=== PATIENT | female | born 1960 | race Caucasian/White ===

== ENCOUNTER 2016-06-01 17:15 | Emergency (ER) | payer MEDICAID ==
--- NOTE | 2016-06-01 17:48 | ER Document Report ---
ED Respiratory Problem - General Mode of Arrival: Medic Information source: Patient TRAVEL OUTSIDE OF THE [place] IN LAST 30 DAYS: No - HPI Patient complains to provider of: Short of breath Associated symptoms: Other - See above <DENNY CHEW - Last Filed: 06/01/16 18:33> <JOSAFAT MCKEON - Last Filed: 06/01/16 20:37> - General Chief Complaint: Shortness Of Breath Stated Complaint: SHORTNESS OF BREATH Notes: Patient is a 55-year-old female, with a past medical history including COPD, who presents to the emergency department today via EMS complaining of shortness of breath. Patient reports she has had a cough for the past week and was treated by her hammer operator with steroids and antibiotics which she completed yesterday. Patient states that yesterday she began having shortness of breath and was up all night. Patient denies any fever. Patient states that she has not been smoking for the past 5 days. Patient is not on home oxygen. Circuit Clerk: Dr. 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 Family History: Reviewed & Not Pertinent - Past Medical History Cardiac Medical History: Reports: Hx Heart Attack - 2003 because of drug interactions Pulmonary Medical History: Reports: Hx Asthma, Hx COPD Neurological Medical History: Reports: Hx Seizures - RX DRUG RELATED FROM CLONIPINE/1 EPISODE 4-5 YRS AGO GI Medical History: Reports: Hx Diverticulitis Psychiatric Medical History: Reports: Hx Bipolar Disorder, Hx Depression Past Surgical History: Reports: Hx Abdominal Surgery - colostomy, romero, Hx Orthopedic Surgery - Partial R hip replacement - Immunizations Hx Diphtheria, Pertussis, Tetanus Vaccination: Yes Hx Pneumococcal Vaccination: 05/29/11 <DENNY CHEW - Last Filed: 06/01/16 18:33> Review of Systems - Review of Systems Constitutional: denies: Fever EENT: No symptoms reported Cardiovascular: No symptoms reported Respiratory: See HPI, Cough, Short of breath Gastrointestinal: No symptoms reported Genitourinary: No symptoms reported Female Genitourinary: No symptoms reported Musculoskeletal: No symptoms reported Skin: No symptoms reported Hematologic/Lymphatic: No symptoms reported Neurological/Psychological: No symptoms reported -: Yes All other systems reviewed and negative <CHEWDENNY - Last Filed: 06/01/16 18:33> Physical Exam - Vital signs Interpretation: Normal - General General appearance: Appears well, Alert - HEENT Head: Normocephalic, Atraumatic - Respiratory Respiratory status: No respiratory distress Chest status: Nontender Breath sounds: Wheezing - expiratory wheeze Chest palpation: Normal - Cardiovascular Rhythm: Regular Heart sounds: Normal auscultation Murmur: No - Abdominal Inspection: Normal Distension: No distension Bowel sounds: Normal Tenderness: Nontender Organomegaly: No organomegaly - Extremities General upper extremity: Normal inspection General lower extremity: Normal inspection - Neurological Neuro grossly intact: Yes Cognition: Normal Orientation: AAOx4 [place] Coma Scale Eye Opening: Spontaneous [place] Coma Scale Verbal: Oriented [place] Coma Scale Motor: Obeys Commands [place] Coma Scale Total: 15 Speech: Normal - Psychological Associated symptoms: Normal affect, Normal mood - Skin Skin Temperature: Warm Skin Moisture: Dry Skin Color: Normal <DENNY CHEW - Last Filed: 06/01/16 18:33> Course - Laboratory Result Diagrams: 06/01/16 18:23 06/01/16 18:23 <DENNY CHEW - Last Filed: 06/01/16 18:33> - Laboratory Result Diagrams: 06/01/16 18:23 06/01/16 18:23 <JOSAFAT MCKEON - Last Filed: 06/01/16 20:37> - Re-evaluation Re-evalutation: 06/01/16 20:35 I personally performed the services described in the documentation, reviewed and edited the documentation which was dictated to my scribe in my presence, and it accurately records my words and actions. Patient with a history of COPD not on oxygen presents with a 4-5 day history of increased cough and wheezing. She saw her primary home care rn was placed on Zithromax and prednisone as that she still has wheezing at night she also has a nebulizer machine at home. She denies any shortness breath with atypical for her history of COPD and asthma. She denies any cardiac complaints exertional phenomena and is wheelchair-bound. She denies any recent history of travel surgery immobilization DVT or pulmonary MT nondirectional edema Or Swelling or CHF Chest X-Ray Is Negative Significant Improvement with Breathing Treatments Is on Steroids and Given Magnesium. Pulse Ox 93-94% at Bedside We'll Discharge Follow-Up with Primary Care Physician in 2-3 Days Term for Increasing Worsening or New Symptoms (JOSAFAT MCKEON) - Vital Signs Vital signs: Temp Pulse Resp BP Pulse Ox 97.7 F 102 H 20 124/94 H 91 L 06/01/16 19:10 06/01/16 18:00 06/01/16 18:00 06/01/16 18:00 06/01/16 18:00 (JOSAFAT MCKEON) - Laboratory Laboratory results interpreted by me: 06/01/16 06/01/16 18:23 18:23 Seg Neutrophils % 90.2 H Lymphocytes % 6.3 L Monocytes % 2.6 L BUN 4 L Glucose 119 H (JOSAFAT MCKEON) Discharge <DENNY CHEW - Last Filed: 06/01/16 18:33> <JOSAFAT MCKEON - Last Filed: 06/01/16 20:37> - Discharge Clinical Impression: Acute bronchitis Qualifiers: Bronchitis organism: unspecified organism Qualified Code(s): J20.9 - Acute bronchitis, unspecified Condition: Stable Disposition: HOME, SELF-CARE Additional Instructions: Bronchitis You have acute bronchitis. This disease is an infection or inflammation of the air passageways in your lungs. Symptoms usually include cough, low grade fever, shortness of breath, and wheezing. The cough usually persists for a couple of weeks. Most cases of bronchitis get better without antibiotics. We prescribe antibiotics when we believe bacteria are damaging your airways, or if there's high risk the bronchitis will worsen into pneumonia. Increase your fluid intake. A cool mist humidifier may make your lungs more comfortable. An expectorant (cough medicine that loosens phlegm) can help. If you smoke, STOP!!! Recovery from bronchitis can be somewhat slow, but you should see improvement within a day or two. Repeated episodes of bronchitis may result in lung damage -- for example, chronic bronchitis, recurrent pneumonias, or emphysema. Call the doctor if you develop increasing fever, shortness of breath, chest pain, bloody sputum, or otherwise worsen. If you have not improved at all after several days, contact the physician. Referrals: BAY ROMO MD [Primary Care Provider] - (Follow-up in 2-3 days return for increasing worsening or new symptoms) Scribe Documentation - Scribe Written by Mario:: mario Douglas, 06/01/[id number] acting as scribe for :: Henry <DENNY CHEW - Last Filed: 06/01/16 18:33>
[2016-06-01] MEDS ORDERED: METHYLPREDNISOLONE INJ 125 MG/2 ML SDV IV ONE (18:09)
[2016-06-01] MEDS ORDERED: MAGNESIUM SULFATE/D5W 100 ML IV SCH (18:15)
[2016-06-01 18:31] LABS: ABSOLUTE LYMPHOCYTES (AUTO) 0.6 10^3/uL (0.5-4.7); ABSOLUTE MONOCYTES (AUTO) 0.2 10^3/uL (0.1-1.4); ABSOLUTE NEUT (AUTO) 8.1 10^3/uL (1.7-8.2); BASOPHILS % (AUTO) 0.4 % (0-2); EOSINOPHILS % (AUTO) 0.5 % (0-6); HEMATOCRIT 41.3 % (36.0-47.0); HEMOGLOBIN 13.6 g/dL (12.0-15.5); HGB HCT DIFFERENCE -0.5; LYMPHOCYTES % (AUTO) 6.3 % (13-45); MEAN CORPUSCULAR HEMOGLOBIN 27.5 pg (27.0-33.4); MEAN CORPUSCULAR HGB CONC 32.9 g/dL (32.0-36.0); MEAN CORPUSCULAR VOLUME 84 fl (80-97); MONOCYTES % (AUTO) 2.6 % (3-13); RED BLOOD COUNT 4.93 10^6/uL (3.72-5.28); RED CELL DISTRIBUTION WIDTH 13.6 % (11.5-14.0); SEGMENTED NEUTROPHILS % (AUTO) 90.2 % (42-78); WHITE BLOOD COUNT 8.9 10^3/uL (4.0-10.5)
[2016-06-01 18:44] LABS: ANION GAP 15 (5-19); BLOOD UREA NITROGEN 4 mg/dL (7-20); CALCIUM 8.9 mg/dL (8.4-10.2); CARBON DIOXIDE 28 mmol/L (22-30); CHLORIDE 100 mmol/L (98-107); GLUCOSE 119 mg/dL (75-110); POTASSIUM 3.6 mmol/L (3.6-5.0); SODIUM 143.1 mmol/L (137-145)
[2016-06-01 21:03] VITALS: BP 139/92
== END 2016-06-01 21:03 | disposition home or self-care (01) ==
LOC: ER 17:15
DX: J20.9 Acute bronchitis, unspecified (principal); R06.02 Shortness of breath; J44.9 Chronic obstructive pulmonary disease, unspecified; R05 Cough; F17.210 Nicotine dependence, cigarettes, uncomplicated
CPT/HCPCS: 99285; 96375; 96365; 36415; 85025; 80048; 71010; J2930; J3475

== ENCOUNTER 2019-05-16 16:31 | Emergency (ER) | payer MEDICAID ==
[2019-05-16 17:07] LABS: ABSOLUTE LYMPHOCYTES (AUTO) 0.7 10^3/uL (0.5-4.7); ABSOLUTE MONOCYTES (AUTO) 0.3 10^3/uL (0.1-1.4); ABSOLUTE NEUT (AUTO) 7.6 10^3/uL (1.7-8.2); BASOPHILS % (AUTO) 0.4 % (0-2); HEMATOCRIT 38.8 % (36.0-47.0); HEMOGLOBIN 12.9 g/dL (12.0-15.5); LYMPHOCYTES % (AUTO) 8.2 % (13-45); MEAN CORPUSCULAR HEMOGLOBIN 27.8 pg (27.0-33.4); MEAN CORPUSCULAR HGB CONC 33.1 g/dL (32.0-36.0); MEAN CORPUSCULAR VOLUME 84 fl (80-97); MONOCYTES % (AUTO) 3.1 % (3-13); PLATELET COUNT 275 10^3/uL (150-450); RED BLOOD COUNT 4.63 10^6/uL (3.72-5.28); RED CELL DISTRIBUTION WIDTH 14.1 % (11.5-14.0); SEGMENTED NEUTROPHILS % (AUTO) 88.3 % (42-78); TOTAL CELLS COUNTED % (AUTO) 100 %; WHITE BLOOD COUNT 8.6 10^3/uL (4.0-10.5)
--- NOTE | 2019-05-16 17:37 | RADIOLOGY REPORT (SQ) ---
EXAM DESCRIPTION: CHEST 2 VIEWS COMPLETED DATE/TIME: 05/16/2019 5:14 pm REASON FOR STUDY: SOB COMPARISON: 06/01/2016 NUMBER OF VIEWS: Two view. TECHNIQUE: Frontal and lateral radiographic views of the chest acquired. LIMITATIONS: None. FINDINGS: LUNGS AND PLEURA: No opacities, masses or pneumothorax. No pleural effusion. Attenuated bl ood vessels and flattened rd-diaphragms. MEDIASTINUM AND HILAR STRUCTURES: No masses. No contour abnormalities. HEART AND VASCULAR STRUCTURES: Heart normal in size and contour. No evidence for failure. BONES: No acute findings. HARDWARE: None in the chest. OTHER: No other significant finding. IMPRESSION: COPD. NO ACUTE RADIOGRAPHIC FINDING IN THE CHEST. TECHNICAL DOCUMENTATION: JOB ID: [id number] [employer]- All Rights Reserved Reading location - IP/workstation name: [email or web address]
[2019-05-16 17:44] LABS: ALBUMIN 4.1 g/dL (3.5-5.0); ALKALINE PHOSPHATASE 157 U/L (38-126); ANION GAP 10 (5-19); ASPARTATE AMINO TRANSFERASE 19 U/L (14-36); BILIRUBIN,DIRECT 0.2 mg/dL (0.0-0.4); BILIRUBIN,TOTAL 0.3 mg/dL (0.2-1.3); BLOOD UREA NITROGEN 6 mg/dL (7-20); CALCIUM 9.8 mg/dL (8.4-10.2); CARBON DIOXIDE 29 mmol/L (22-30); CHLORIDE 103 mmol/L (98-107); CREATINE KINASE 64 U/L (30-135); GLUCOSE 131 mg/dL (75-110); POTASSIUM 3.4 mmol/L (3.6-5.0)
[2019-05-16 17:54] LABS: CREATINE KINASE MB 4.78 ng/mL (<4.55)
[2019-05-16 18:04] LABS: TROPONIN I < 0.012 ng/mL
[2019-05-16] MEDS ORDERED: IPRATROPIUM/ALBUTEROL 0.5-2.5 MG/3 ML AMPUL NEB ONE (18:20)
--- NOTE | 2019-05-16 18:59 | ER Document Report ---
Entered by NOREEN JOAQUIN SCRIBE 05/16/19 [id number] Acting as scribe for:ALKESEY LUND IV, MD ED Respiratory Problem - General Chief Complaint: Shortness Of Breath Stated Complaint: DIFFICULTY BREATHING Time Seen by Provider: 05/16/19 17:54 Primary Care Provider: STEVEN BECERRIL PA-C [Primary Care Provider] - Follow up as needed Mode of Arrival: Ambulatory Information source: Patient Notes: This 58-year-old female patient presents to the emergency department today with complaints of shortness of breath. Patient states that she has had this shortness of breath for 2 days and this frequently happens when she "gets bronchitis". Patient states the last 2 days when she gets up to go to the bathroom when she comes back her oxygen saturations are in the low 80s. Patient states she is not on home oxygen. Patient states she called her doctor who called her in a prescription for prednisone and a Z-Alan, she has had 1 dose of each today. TRAVEL OUTSIDE OF THE [place] IN LAST 30 DAYS: No - Related Data Allergies/Adverse Reactions: Penicillins Allergy (Severe, Verified 06/05/13 12:15) Tetanus Vaccines and Toxoid [Tetanus] Allergy (Severe, Verified 06/05/13 12:15) lorazepam [From Ativan] Allergy (Verified 12/09/13 13:21) DELERIUM Home Medications: klonopin, clonidine, zpack, prednisone, mirtazapine, tileptal, latuda, spiriva, proair, albuterol neb, symbicort, duloxetine. Past Medical History - General Information source: Patient - Social History Smoking Status: Current Some Day Smoker Cigarette use (# per day): No Chew tobacco use (# tins/day): No Frequency of alcohol use: None Drug Abuse: None Lives with: Family Family History: Reviewed & Not Pertinent Patient has suicidal ideation: No Patient has homicidal ideation: No - Past Medical History Cardiac Medical History: Reports: Hx Heart Attack - 2003 because of drug interactions Pulmonary Medical History: Reports: Hx Asthma, Hx COPD Neurological Medical History: Reports: Hx Seizures - RX DRUG RELATED FROM CLONIPINE/1 EPISODE 4-5 YRS AGO GI Medical History: Reports: Hx Diverticulitis Psychiatric Medical History: Reports: Hx Bipolar Disorder, Hx Depression Past Surgical History: Reports: Hx Abdominal Surgery - colostomy, romero, Hx Orthopedic Surgery - Partial R hip replacement - Immunizations Hx Diphtheria, Pertussis, Tetanus Vaccination: Yes Hx Pneumococcal Vaccination: 05/29/11 Review of Systems - Review of Systems Constitutional: No symptoms reported EENT: No symptoms reported Cardiovascular: No symptoms reported Respiratory: See HPI, Cough, Short of breath, Wheezing Gastrointestinal: No symptoms reported Genitourinary: No symptoms reported Female Genitourinary: No symptoms reported Musculoskeletal: No symptoms reported Skin: No symptoms reported Hematologic/Lymphatic: No symptoms reported Neurological/Psychological: No symptoms reported -: Yes All other systems reviewed and negative Physical Exam - Vital signs Vitals: Temp Pulse Resp BP Pulse Ox 98.1 F 128 H 23 H 170/90 H 95 05/16/19 16:31 05/16/19 16:31 05/16/19 16:31 05/16/19 16:31 05/16/19 16:31 - Notes Notes: Physical Exam: General: Alert, appears well. HEENT: Normocephalic. Atraumatic. PERRL. Extraocular movements intact. Oropharynx clear. Neck: Supple. Non-tender. Respiratory: Mild respiratory distress. Decreased air movement bilaterally. Cardiovascular: Regular rate and rhythm. Abdominal: Normal Inspection. Non-tender. No distension. Normal Bowel Sounds. Back: No gross abnormalities. Extremities: Moves all four extremities. Upper extremities: Normal inspection. Normal ROM. Lower extremities: Normal inspection. No edema. Normal ROM. Neurological: Normal cognition. AAOx4. Normal speech. Psychological: Normal affect. Normal Mood. Skin: Warm. Dry. Normal color. Course - Vital Signs Vital signs: Temp Pulse Resp BP Pulse Ox 98.1 F 128 H 19 140/100 H 94 05/16/19 16:31 05/16/19 16:31 05/16/19 19:01 05/16/19 19:01 05/16/19 19:01 - Laboratory Result Diagrams: 05/16/19 16:43 05/16/19 16:43 Laboratory results interpreted by me: 05/16/19 05/16/19 05/16/19 16:43 16:43 16:43 RDW 14.1 H Lymph % (Auto) 8.2 L Seg Neutrophils % 88.3 H Potassium 3.4 L BUN 6 L Glucose 131 H Alkaline Phosphatase 157 H CK-MB (CK-2) 4.78 H Discharge - Discharge Clinical Impression: COPD exacerbation Condition: Good Disposition: HOME, SELF-CARE Additional Instructions: Return to the Emergency Department without delay if any worse. HOME CARE INSTRUCTIONS & INFORMATION: Thank you for choosing us for your medical needs. We hope you're satisfied with the care you received. After you leave, you must properly care for your problem and, at the same time, observe its progress. Any condition can change. Some illnesses can change rapidly over hours or days. If your condition worsens, return to the Emergency Department or see your physician promptly. ABOUT YOUR X-RAYS AND EKG'S: If you had an EKG or X-rays taken, they have been read by the Emergency Physician. The X-rays and EKG's will also be read by a Radiologist or Transportation Escort within 24 hours. If discrepancies are noted, you will be notified by telephone. Please be certain the ED has a correct telephone number & address where you can be reached. Also, realize that some fractures or abnormalities do not show up on initial X-rays. If your symptoms continue, see your physician. ABOUT YOUR LABORATORY TEST: If you had laboratory tests, the results have been reviewed by the Emergency Physician. Some test results (for example cultures) may not be available for several days. You will be contacted if any test result shows you need additional treatment. Please be certain the ED has a correct telephone number and address where you can be reached. ABOUT YOUR MEDICATIONS: You will receive instructions on how to take your medicine on the prescription label you receive. Additional information may be provided by the Pharmacy. If you have questions afterwards, call the ED for clarification or further instructions. Some prescribed medications may cause drowsiness. Do not perform tasks such as driving a car or operating machinery w ithout consulting your Pharmacist. If you feel you need a refill of pain medication, your condition will need re-evaluation. Please do not call for a refill of any medication. ABOUT YOUR SIGNATURE: Signature of this document acknowledges to followin. Understanding that you received emergency treatment and that you may be released before al medical problems are known or treated. Please be certain the ED has a correct phone number & address where you can be reached. 2. Acknowledgement that you will arrange for follow-up care as recommended. 3. Authorization for the Emergency Physician to provide information to your follow-up Physician in order to maximize your care. AT ANY TIME, IF YOUR SYMPTOMS CHANGE SIGNIFICANTLY OR WORSEN OR YOU DEVELOP NEW SYMPTOMS, RETURN TO THE EMERGENCY DEPARTMENT IMMEDIATELY FOR RE-EVALUATION. OUR GOAL IS TO PROVIDE EXCELLENT MEDICAL CARE! WE HOPE THAT WE HAVE MET YOUR EXPECTATIONS DURING YOUR EMERGENCY DEPARTMENT VISIT AND THAT YOU FEEL YOU HAVE RECEIVED EXCELLENT CARE! Chronic Obstructive Lung Disease You have chronic obstructive lung disease (COPD). The symptoms come from emphysema (damage to small airways, with trapping of air in large sacks in the lung) and chronic bronchitis (repeated infection and damage to larger airways). The cause is almost always cigarette smoking, although dust exposure, asthma, and infections contribute. You should avoid fumes, dust, and smoke (especially tobacco smoke). Your condition will flare from time to time. There is no cure, but the symptoms can be treated. Bronchodilators (asthma medicine) are often helpful. Antibiotics help when infection is present. When shortness of breath is severe, we may prescribe cortisone medication. If medicine doesn't help enough, we can arrange for you to have an oxygen tank at home. Notify your doctor at once if sputum becomes thick, foul, or bloody, if you develop a fever or chest pain, or if your shortness of breath worsens. Prescriptions: Prednisone [Deltasone 20 mg Tablet] 3 tab PO DAILY 4 Days #12 tablet Referrals: STEVEN BECERRIL PA-C [Primary Care Provider] - Follow up as needed I personally performed the services described in the documentation, reviewed and edited the documentation which was dictated to the scribe in my presence, and it accurately records my words and actions.
[2019-05-16 21:18] VITALS: BP 137/91
--- NOTE | 2019-05-17 15:29 | EKG REPORT ---
SEVERITY:- ABNORMAL ECG - SINUS TACHYCARDIA BIATRIAL ABNORMALITIES PROBABLE LVH WITH SECONDARY REPOL ABNRM ANTERIOR Q WAVES, POSSIBLY DUE TO LVH PROLONGED QT INTERVAL VPCs : Confirmed by: Maggie Wallace 17-May-2019 15:28:57
== END 2019-05-16 20:45 | disposition home or self-care (01) ==
LOC: ER 16:31
DX: J44.1 Chronic obstructive pulmonary disease with (acute) exacerbation (principal); R06.02 Shortness of breath; R06.00 Dyspnea, unspecified; F17.200 Nicotine dependence, unspecified, uncomplicated; Z88.0 Allergy status to penicillin; I25.2 Old myocardial infarction
CPT/HCPCS: 36415; 82553; 82550; 85025; 80053; 84484; 71046; J7620; 93005; 93010; 94640; 99285

== ENCOUNTER 2019-05-17 21:24 | Inpatient (IN) | payer MEDICAID ==
[2019-05-17] MEDS ORDERED: VECURONIUM BROMIDE INJ 10 MG VIAL IV ONE (21:39)
[2019-05-17] MEDS ORDERED: HYDROMORPHONE HCL INJ/PF 2 MG/ML AMPULE IV ONE (21:40)
--- NOTE | 2019-05-17 21:46 | RADIOLOGY REPORT (SQ) ---
XR CHEST 1 VIEW EXAM DATE: 05/17/2019 12:00 AM ANAESTHESIOLOGIST HISTORY: Intubation. COMPARISON: 06/01/2016 FINDINGS: Normal heart size without pulmonary edema. The lungs are clear. No pleural effusions or pneumothorax. The endotracheal tube is 3.5 cm from the [place]. IMPRESSION: ET tube 3.5 cm from [place].
[2019-05-17 21:54] LABS: ABSOLUTE LYMPHOCYTES (AUTO) 2.1 10^3/uL (0.5-4.7); ABSOLUTE MONOCYTES (AUTO) 0.9 10^3/uL (0.1-1.4); ABSOLUTE NEUT (AUTO) 10.7 10^3/uL (1.7-8.2); BASOPHILS % (AUTO) 0.1 % (0-2); HEMOGLOBIN 13.2 g/dL (12.0-15.5); LYMPHOCYTES % (AUTO) 15.1 % (13-45); MEAN CORPUSCULAR HEMOGLOBIN 27.1 pg (27.0-33.4); MEAN CORPUSCULAR HGB CONC 31.4 g/dL (32.0-36.0); MEAN CORPUSCULAR VOLUME 86 fl (80-97); MONOCYTES % (AUTO) 6.4 % (3-13); PLATELET COUNT 396 10^3/uL (150-450); RED BLOOD COUNT 4.88 10^6/uL (3.72-5.28); RED CELL DISTRIBUTION WIDTH 14.5 % (11.5-14.0); SEGMENTED NEUTROPHILS % (AUTO) 78.4 % (42-78); TOTAL CELLS COUNTED % (AUTO) 100 %; WHITE BLOOD COUNT 13.7 10^3/uL (4.0-10.5)
[2019-05-17 22:08] LABS: ALBUMIN 3.6 g/dL (3.5-5.0); ALKALINE PHOSPHATASE 135 U/L (38-126); ANION GAP 14 (5-19); ASPARTATE AMINO TRANSFERASE 25 U/L (14-36); BILIRUBIN,DIRECT 0.2 mg/dL (0.0-0.4); BILIRUBIN,TOTAL 0.3 mg/dL (0.2-1.3); BLOOD UREA NITROGEN 12 mg/dL (7-20); CALCIUM 9.3 mg/dL (8.4-10.2); CARBON DIOXIDE 30 mmol/L (22-30); CHLORIDE 98 mmol/L (98-107); GLUCOSE 318 mg/dL (75-110); TOTAL PROTEIN 6.3 g/dL (6.3-8.2)
[2019-05-17] MEDS ORDERED: NORMAL SALINE 1000 ML 1,000 ML IV ONE (22:23)
[2019-05-17 22:40] LABS: A TYPE INFLUENZA AG NEGATIVE (NEGATIVE); B INFLUENZA AG NEGATIVE (NEGATIVE)
[2019-05-17] MEDS ORDERED: PHARMACY COMMUNICATION ORDER MC NR (23:45)
--- NOTE | 2019-05-18 00:02 | ER Document Report ---
Entered by NOREEN JOAQUIN SCRIBE 05/17/[id number] Acting as scribe for:ALEKSEY LUND IV, MD ED Respiratory Problem - General Stated Complaint: RESPIRATORY DISTRESS Mode of Arrival: Medic Notes: This 58 year old female patient presents to the emergency department today via EMS s/p intubation for respiratory distress. EMS reports they were called out for respiratory distress and when they arrived on scene the patient had an oxygen saturation in the low 80s and appeared "worn out" with a respiratory rate of <10. EMS reports that they "could not hear anything except for slight upper lobe wheezing" and she was subsequently intubated. Family reports that the patient began complaining of increased shortness of breath with an increased work of breathing about an hour prior to EMS arriving. Patient was seen here yesterday for complaints of a COPD exacerbation. Patient was road tested prior to discharge and her room air oxygen saturation dropped to 88% at the lowest, but generally stayed between 96-99% per nursing notes from yesterday's visit. TRAVEL OUTSIDE OF THE [place] IN LAST 30 DAYS: No - Related Data Allergies/Adverse Reactions: Penicillins Allergy (Severe, Verified 06/05/13 12:15) Tetanus Vaccines and Toxoid [Tetanus] Allergy (Severe, Verified 06/05/13 12:15) lorazepam [From Ativan] Allergy (Verified 12/09/13 13:21) DELERIUM Past Medical History - General Information source: [facility] Records - Social History Smoking Status: Current Every Day Smoker Cigarette use (# per day): Yes Frequency of alcohol use: None Drug Abuse: Marijuana Lives with: Family Family History: Reviewed & Not Pertinent - Past Medical History Cardiac Medical History: Reports: Hx Heart Attack - 2003 because of drug interactions Pulmonary Medical History: Reports: Hx Asthma, Hx COPD Neurological Medical History: Reports: Hx Seizures - RX DRUG RELATED FROM CLONIPINE/1 EPISODE 4-5 YRS AGO GI Medical History: Reports: Hx Diverticulitis Psychiatric Medical History: Reports: Hx Bipolar Disorder, Hx Depression Past Surgical History: Reports: Hx Abdominal Surgery - colostomy, romero, Hx Orthopedic Surgery - Partial R hip replacement - Immunizations Hx Diphtheria, Pertussis, Tetanus Vaccination: Yes Hx Pneumococcal Vaccination: 05/29/11 Review of Systems - Review of Systems -: Yes ROS unobtainable due to patient's medical condition Physical Exam - Vital signs Vitals: Resp Pulse Ox 16 100 12/20/19 21:26 05/17/19 21:26 - General General appearance: Unresponsive In distress: Severe Notes: Intubated prior to arrival - HEENT Head: Normocephalic, Atraumatic Conjunctiva: Normal - Respiratory Respiratory status: Other - Intubated Breath sounds: Other - Breath sounds bilaterally - Cardiovascular Rhythm: Regular Heart sounds: Normal auscultation Murmur: No - Abdominal Inspection: Normal Distension: No distension - Extremities General upper extremity: Normal inspection. No: Edema General lower extremity: Normal inspection. No: Edema - Neurological [place] Coma Scale Eye Opening: None [place] Coma Scale Verbal: None [place] Coma Scale Motor: None [place] Coma Scale Total: 3 - Psychological Associated symptoms: Other - unable to assess - Skin Skin Temperature: Cool Skin Moisture: Dry Skin Color: Normal Course - Vital Signs Vital signs: Temp Pulse Resp BP Pulse Ox 100.6 F H 111 H 20 83/61 L 99 05/17/19 23:46 05/17/19 21:34 05/17/19 23:46 05/17/19 23:46 05/17/19 23:46 - Laboratory Result Diagrams: 05/17/19 21:29 05/17/19 21:29 Laboratory results interpreted by me: 05/17/19 05/17/19 05/17/19 21:29 21:29 21:29 WBC 13.7 H MCHC 31.4 L RDW 14.5 H Absolute Neuts (auto) 10.7 H Seg Neutrophils % 78.4 H Glucose 318 H Lactic Acid 3.6 H Alkaline Phosphatase 135 H - Consults JIGAR ARAMBULA Time consulted: 21:51 Reason for consultation: 05/17/19 21:51 COPD EXACERBATION, INTUBATED UPON ARRIVAL Consulted provider: will come to ER Discharge - Discharge Clinical Impression: COPD exacerbation Acute respiratory failure Qualifiers: Respiratory failure complication: unspecified whether with hypoxia or hypercapnia Qualified Code(s): J96.00 - Acute respiratory failure, unspecified whether with hypoxia or hypercapnia Condition: Critical Disposition: ADMITTED INPATIENT Admitting Provider: Pancho (Airport Driver) Unit Admitted: ICU I personally performed the services described in the documentation, reviewed and edited the documentation which was dictated to the scribe in my presence, and it accurately records my words and actions.
[2019-05-18] MEDS ORDERED: FAMOTIDINE INJ/PF 20 MG/2 ML SDV IV ONE (00:30)
[2019-05-18] MEDS: PROPOFOL 1,000 MG/100 ML INFUS..BTL IV PRN ×4 (00:39→18:23)
[2019-05-18] MEDS ORDERED: DEXTROSE 50%-WATER 25 GM/50 ML DISP.SYRIN IV PRN ×2 (00:41)
[2019-05-18] MEDS ORDERED: GLUCAGON,HUMAN RECOMB 1 MG INJ IM PRN (00:41)
[2019-05-18] MEDS ORDERED: DEXTROSE 40% GEL 15 GM TUBE PO PRN ×2 (00:41)
[2019-05-18] MEDS ORDERED: INSULIN REG, HUMAN 100 UNIT/ML 3 ML VIAL (PYX) SUBCUT ONE (00:45)
[2019-05-18 01:05] LABS: ARTERIAL BLOOD BASE EXCESS 0.8 mmol/L; ARTERIAL BLOOD H2CO3 1.88 mmol/L (1.05-1.35); ARTERIAL BLOOD O2 SATURATION 97.5 % (94-98); ARTERIAL BLOOD PCO2 62.6 mmHg (35-45); ARTERIAL BLOOD PH 7.28 (7.35-7.45); ARTERIAL BLOOD TOTAL CO2 30.9 mmol/L (21-25)
[2019-05-18 01:06] LABS: ARTERIAL BLOOD BASE EXCESS -3.7 mmol/L; ARTERIAL BLOOD FIO2 40%; ARTERIAL BLOOD H2CO3 2.43 mmol/L (1.05-1.35); ARTERIAL BLOOD HCO3 27.3 mmol/L (20-24); ARTERIAL BLOOD O2 SATURATION 98.4 % (94-98); ARTERIAL BLOOD PO2 161.1 mmHg (80-100); ARTERIAL BLOOD TOTAL CO2 29.8 mmol/L (21-25)
[2019-05-18 01:06] LABS: ARTERIAL BLOOD FIO2 40%
[2019-05-18 01:09] LABS: ARTERIAL BLOOD PCO2 80.8 mmHg (35-45); ARTERIAL BLOOD PH 7.15 (7.35-7.45)
[2019-05-18] MEDS ORDERED: RINGERS SOLUTION,LACTATED 1,000 ML IV PRN ×3 (01:13→07:20)
[2019-05-18] MEDS ORDERED: RINGERS SOLUTION,LACTATED 1,000 ML IV ONE ×2 (01:35→23:32)
[2019-05-18 02:25] LABS: HEMATOCRIT 38.3 % (36.0-47.0); HEMOGLOBIN 12.4 g/dL (12.0-15.5); MEAN CORPUSCULAR HEMOGLOBIN 27.2 pg (27.0-33.4); MEAN CORPUSCULAR HGB CONC 32.5 g/dL (32.0-36.0); MEAN CORPUSCULAR VOLUME 84 fl (80-97); PLATELET COUNT 257 10^3/uL (150-450); RED BLOOD COUNT 4.57 10^6/uL (3.72-5.28); RED CELL DISTRIBUTION WIDTH 14.2 % (11.5-14.0); WHITE BLOOD COUNT 14.4 10^3/uL (4.0-10.5)
[2019-05-18 02:30] LABS: ANION GAP 9 (5-19); BLOOD UREA NITROGEN 15 mg/dL (7-20); CALCIUM 9.2 mg/dL (8.4-10.2); CARBON DIOXIDE 29 mmol/L (22-30); CHLORIDE 105 mmol/L (98-107); GLUCOSE 139 mg/dL (75-110); POTASSIUM 4.4 mmol/L (3.6-5.0)
[2019-05-18] MEDS ORDERED: CEFEPIME 2 GM/D5W RTU 2 GM/50 ML RTUPB IV ONE ×2 (02:30→03:55)
[2019-05-18 02:41] LABS: ABSOLUTE MONOCYTES # (MANUAL) 0.7 10^3/uL (0.1-1.4); BASOPHILS % (MANUAL) 0 % (0-2); EOSINOPHILS % (MANUAL) 0 % (0-6); LYMPHOCYTES % (MANUAL) 6 % (13-45); MONOCYTES % (MANUAL) 5 % (3-13); SEGMENTED NEUTROPHILS % (MAN) 88 % (42-78); TOTAL CELLS COUNTED 100; TOXIC GRANULATION SLIGHT
[2019-05-18 02:42] LABS: ANISOCYTOSIS SLIGHT; OVALOCYTES SLIGHT; PLATELET COMMENT ADEQUATE; POIKILOCYTOSIS SLIGHT; TEAR DROP CELLS SLIGHT
[2019-05-18 03:35] LABS: APPEARANCE,URINE SLIGHTLY-CLOUDY; BILIRUBIN,URINE NEGATIVE (NEGATIVE); COLOR,URINE YELLOW; GLUCOSE, URINE 50 mg/dL (NEGATIVE); KETONES,URINE NEGATIVE (NEGATIVE); PROTEIN,URINE 100 mg/dL (NEGATIVE); URINE SPECIFIC GRAVITY 1.012; UROBILINOGEN,URINE NEGATIVE mg/dL (<2.0)
[2019-05-18] MEDS ORDERED: INFLUENZA QUAD (6MOS+) 2019-20 VAC 0.5 ML SYR IM ONE (04:10)
[2019-05-18] MEDS: INSULIN REG, HUMAN 100 UNIT/ML 3 ML VIAL (PYX) SUBCUT SCH ×3 (05:35→18:28)
--- NOTE | 2019-05-18 05:35 | CRITICAL CARE ADMISSION REPORT ---
<ARAMBULAMATAN - Last Filed: 05/18/19 06:28> HPI Date:: 05/17/19 Time:: 22:30 Reason for ICU Reason:: acute respiratory failure due to hypoxia and hypercapnia HPI: Mrs. Katya Fofana is a 58-year-old female with past medical history of asthma and COPD who presented to [facility] in acute hypoxic and hypercapneic respiratory failure for which she was intubated by EMS at the patient's home. Mrs. Fofana was seen in the ER yesterday for shortness of breath x 2 days for which she received nebs with improvement, was diagnosed with bronchitis, passed a walk test, and was subsequently discharged home. According to her daughter, patient had increased work of breathing all day which worsened this evening for which she (daughter) called EMS. According to EMS, the patient was noted to be in respiratory distress upon arrival with an SPO2 in the 50s during a home breathing treatment and was not moving much air when auscultating her lungs. Reportedly, her CO2 was in the 80s to 90s with an obtunded mental status. EMS administered 2 nebulized treatments, 125 mg of Solu-Medrol, 2 g of magnesium without improvement in the patient's condition for which she was subsequently intubated for respiratory failure. To note, the patient is not on home O2 at this time. Notable labs are a leukocytosis of 13.7, temperature of 100.8, lactate of 3.6, troponin 0.248, glucose of 318 (which may be due to steroids). Her blood pressure started to decrease during the encounter and he had History obtained from:: ER physician and medical record - Diagnosis/Plan (1) Acute respiratory failure with hypoxia and hypercapnia Is this a current diagnosis for this admission?: Yes Plan: Ventilator adjusted by myself in ED for hypoventilation with Ve of 7. ETT also advanced to 26cm due to cuff leak during encounter with low returned tidal volumes of 147 mL with set Vt of 400. Leak resolved, no need for repeat CXR at this time, though will obtain one in the AM. Repeat ABG now and again in AM if still resp acidemia. If needs more CO2 offloading, will increase Vt to account for hyperinflated lungs and decrease RR as opposed to increasing RR and contributing to air trapping/auto-Peep. Pplat currently 17. Prevent VAE while mechanically ventilated. See further plan under COPD exacerbation. (2) COPD exacerbation Is this a current diagnosis for this admission?: Yes Plan: Duo-nebs q6h Solumedrol 40 mg q8h Sputum thick yellow; from chart review appears pt has had several episodes of bronchitis in the past though I am uncertain how many episodes she is experie ncing per year. Tracheal aspirate for GS & Cx Cefepime with good broad-spectrum coverage including Pseudomonas, avoiding fluoroquinolones at this time Check urine Legionella, flu swab, respiratory viral panel. Resume home meds when improves/extubated Supportive care Resume home Spiriva & Prednisone after extubated. (3) Asthma Qualifiers: Asthma severity: unspecified severity Asthma persistence: unspecified Asthma complication type: unspecified Qualified Code(s): J45.909 - Unspecified asthma, uncomplicated Is this a current diagnosis for this admission?: Yes Plan: Has asthma per medical record history, in setting of current smoking tobacco abuse. See treatment as above for COPD. (4) Hypotension due to hypovolemia Is this a current diagnosis for this admission?: Yes Plan: Patient profoundly hypovolemic when evaluated by ICU team in ED. POCUS performed demonstrating collapse of the left ventricle for which a small influx of fluid noted with a positive pressure ventilation followed by collapse of the ventricle again during end expiration. Fluid bolus prn. LR 100 ml/hr for maintenance IVF for now. Hypotension resolved with 1L LR bolus in ED. (5) Hypovolemia Is this a current diagnosis for this admission?: Yes Plan: Patient profoundly hypovolemic when evaluated by ICU team in ED. POCUS performed demonstrating collapse of the left ventricle for which a small influx of fluid noted with a positive pressure ventilation followed by collapse of the ventricle again during end expiration. Administered 1L Ringer's Lactate bolus wide open during encounter in ED. Will co ntinue to observe to determine if needs more volume. LR maintenance IVF at 100 ml/hr. (6) Elevated troponin I level Is this a current diagnosis for this admission?: Yes Plan: Patient profoundly hypovolemic when evaluated by ICU team in ED. POCUS performed demonstrating collapse of the left ventricle for which a small influx of fluid noted with a positive pressure ventilation followed by collapse of the ventricle again during end expiration. Volume resuscitate, trend troponin, repeat EKG In AM. Repeat POCUS after volume. May need formal TTE if above does not improve. (7) Sepsis Qualifiers: Sepsis type: sepsis due to unspecified organism Sepsis acute organ dysfunc tion status: with acute organ dysfunction Severe sepsis acute organ dysfu nction type: acute respiratory failure Acute respiratory failure type: with hypercapnia Severe sepsis shock status: without septic shock Qualified Code(s): A41.9 - Sepsis, unspecified organism; R65.20 - Severe sepsis without septic shock; J96.02 - Acute respiratory failure with hypercapnia Is this a current diagnosis for this admission?: Yes Plan: Sepsis a possibility given leukocytosis, fever, tachycardia, respiratory failure. Though patient profoundly hypovolemic upon initial evaluation as well so will continue to follow. Significant hypoxia with SPO2 50s pre-hospital as well. Tachycardia and fever improved with initial 1L bolus. Obtain blood Cx's, UA with Cx given remote Hx UTI & problems with retention in past (though seem to be related to surgical procedure), and Tracheal aspirate. Check CRP. Empiric Cefepime for broad coverage and as well as coverage for Pseudomonas given COPD. To note, pt allergic to Penicillin; however, cross reactivity with 4th generation cephalosporins unlikely to cause sequelae. Airway already secured and being monitored in ICU; will observe for life-threatening reaction and treat accordingly if surfaces. (8) Anxiety with depression Is this a current diagnosis for this admission?: Yes Plan: Resume home Xanax tomorrow to avoid Benzo withdrawal. See below for Depression. (9) Bipolar disorder Qualifiers: Active/Remission status: remission status unspecified Qualified Code(s): F31.9 - Bipolar disorder, unspecified Plan: Patient intubated/sedated. Would benefit consultation once more alert or after extubated. Med list includes Abilify, Cymbalta, Trileptal. QT prolongation noted on EKG with QTc 523 ms which is likely due to these medications. Re-assess EKG in AM and consider when to resume each medication, want to avoid abrupt withdrawal in regimen. (10) QT prolongation Is this a current diagnosis for this admission?: Yes Plan: Suspect due to home anti-psychotic medications. QTc 523 ms Repeat EKG in AM to assess QTc as patient profoundly hypovolemic in ED with EMS also noting significant hypoxia at her house; will volume resuscitate and avoid hypoxia until repeated. Need to resume psych meds as soon as able to avoid abrupt withdrawal. (11) Acute hyperglycemia Is this a current diagnosis for this admission?: Yes Plan: On steroids and under acute physiologic stress start q6h accuchecks with ISS coverage to keep glucose <180 (12) Currently smokes tobacco Is this a current diagnosis for this admission?: Yes Plan: Per ED physician, pt reports she is still smoking cigarettes when asked on 05/16/19. Tobacco cessation counseling once extubated and prior to discharge. (13) History of marijuana use Is this a current diagnosis for this admission?: No Plan: Check urine drug screen to evaluate if recent abuse. If positive, then patient needs cessation counseling, especially with COPD. Past Medical History Past Medical History: Performed from medical record review as no family present and patient intubated/sedated during encounter. Cardiac Medical History: Reports: Myocardial Infarction - not certain if 2003 or 2006 in chart review; drug-induced etiology Denies: Hypertension Pulmonary Medical History: Reports: Asthma, Chronic Obstructive Pulmonary Disease (COPD), Intubation Denies: Tuberculosis Neurological Medical History: Reports: Seizures - RX DRUG RELATED FROM Klonopin/1 EPISODE 4-5 YRS AGO, Other - chronic pain Endocrine Medical History: Reports: None Denies: Hypothyroidism Renal/ Medical History: Reports: Other - urinary retention during admission w ith perf diverticulitis Denies: Chronic Kidney Disease GI Medical History: Reports: Diverticulitis - perforated resulting in remote (likely resection) and LLQ colostomy Denies: Hepatitis, Hiatal Hernia Psychiatric Medical History: Reports: Bipolar Disorder, Depression, General Anxiety Disorder, Substance Abuse, Tobacco Dependency Traumatic Medical History: Reports: None Hematology: Denies: Anemia, Sickle Cell Disease Infectious Medical History: Reports: None Past Surgical History Past Surgical History: Reports: Orthopedic Surgery - Partial R hip replacement, Other - perforated diver with likely left colon resection and colostomy placement Social/Family History - Social History Lives with: Alone - Not entirely for certain Smoking Status: Current Every Day Smoker Frequency of Alcohol Use: None Hx Recreational Drug Use: Yes Drugs: Marijuana Hx Prescription Drug Abuse: No - Family History Family History: Other - Unable to obtain - Medication/Allergies Home Medications: Albuterol Sulfate [Albuterol Sulfate Hfa] 1 - 2 puff IH Q4 PRN 12/09/13 Tiotropium [place] [Spiriva Handihaler 18 mcg/dose (30 Dose)] 1 cap IH DAILY 12/09/13 Aripiprazole [Abilify 2 mg Tablet] 2 mg PO DAILY 12/11/14 Duloxetine HCl [Cymbalta 20 Mg Capsule.Dr] 20 mg PO DAILY 12/11/14 Budesonide/Formoterol Fumarate [Symbicort HFA 160-4.5 mcg Inhaler 6 gm] 1 puff IN BID 06/15/15 Mirtazapine [Remeron] 45 mg PO DAILY 06/15/15 Oxcarbazepine [Trileptal 150 mg Tablet] 1 tab PO BID 06/15/15 Simvastatin [Zocor 10 mg Tablet] 1 tab PO DAILY 06/15/15 Prednisone [Deltasone 20 mg Tablet] 3 tab PO DAILY 4 Days #12 tablet 05/16/19 Allergies/Adverse Reactions: Penicillins Allergy (Severe, Verified 06/05/13 12:15) Tetanus Vaccines and Toxoid [Tetanus] Allergy (Severe, Verified 06/05/13 12:15) lorazepam [From Ativan] Allergy (Verified 05/18/19 05:14) Delirium Review of Systems ROS unobtainable: Due to endotracheal tube, Due to mental status Physical Exam Vital Signs: Temp Pulse Resp BP Pulse Ox 100.8 F H 111 H 20 87/56 L 95 05/17/19 23:06 05/17/19 21:34 05/17/19 23:06 05/17/19 23:06 05/17/19 23:06 Intake & Output 05/16/19 05/17/19 05/18/19 06:59 06:59 06:59 Weight 62.7 kg Weight/Height Weight 62.7 kg Height 5 ft 5 in General appearance: PRESENT: no acute distress Head exam: PRESENT: atraumatic, normocephalic Eye exam: PRESENT: conjunctiva pink, EOMI, PERRLA. ABSENT: periorbital swelling, scleral icterus Ear exam: PRESENT: normal external ear exam Mouth exam: PRESENT: moist, neck supple, tongue midline. ABSENT: laceration Teeth exam: PRESENT: other - upper and lower dentures discovered in mouth on exam; removed and placed in biohazard bag in possession of MICHAEL Hernandez RN Throat exam: ABSENT: post pharyngeal erythema, tonsillar erythema, tonsillar exudate Neck exam: PRESENT: full ROM, lymphadenopathy. ABSENT: JVD, tracheal deviation Respiratory exam: PRESENT: decreased breath sounds - throughout, wheezes - faint wheeze throughout. ABSENT: accessory muscle use Cardiovascular exam: PRESENT: +S1, +S2, tachycardia - sinus. ABSENT: diastolic murmur, gallop, rubs, systolic murmur Pulses: PRESENT: normal carotid pulses, normal radial pulses, +2 pedal pulses bilateral Vascular exam: PRESENT: normal capillary refill, pallor - though likely patient's baseline color GI/Abdominal exam: PRESENT: hypoactive bowel sounds, soft. ABSENT: distended, guarding, rebound, tenderness Rectal exam: PRESENT: deferred, other - established LUQ colostomy with normal appearing stoma and no corie-stomal erythema/drainage Gentrourinary exam: PRESENT: indwelling catheter - placed in ED. ABSENT: erythema, lacerations, urethral discharge Extremities exam: PRESENT: clubbing. ABSENT: pedal edema Musculoskeletal exam: PRESENT: normal inspection. ABSENT: deformity Neurological exam: PRESENT: other - intubated/sedated and recently received Rocuronium prior to evaluation Skin exam: PRESENT: dry, intact, pallor, other - slightly cool to touch. ABSENT: erythema, jaundice, mottled Tubes/Lines: PRESENT: Endotracheal Tube - placed by EMS in the field, Other - Indwelling urinary catheter placed by ED staff, OG tube was placed with my assistance and was extremely difficult due to anatomy for which video laryngoscopy had to be utilized to assist. Laboratory/Radiographs Laboratory Results: 05/17/19 21:29 05/17/19 21:29 05/17/19 05/17/19 05/17/19 21:29 21:29 21:29 WBC 13.7 H RBC 4.88 Hgb 13.2 Hct 42.0 MCV 86 MCH 27.1 MCHC 31.4 L RDW 14.5 H Plt Count 396 Seg Neutrophils % 78.4 H Sodium 141.8 Potassium 4.0 Chloride 98 Carbon Dioxide 30 Anion Gap 14 BUN 12 Creatinine 0.64 Est GFR ( Amer) > 60 Glucose 318 H Lactic Acid 3.6 H Calcium 9.3 Total Bilirubin 0.3 AST 25 Alkaline Phosphatase 135 H Total Protein 6.3 Albumin 3.6 05/17/19 21:29 Troponin I 0.248 Impressions: Chest X-Ray 05/17/19 00:00 IMPRESSION: ET tube 3.5 cm from [place]. All labs, radiographs, diagnostic studies and EKGs were personally reviewed: Yes Critical Time Critical Time (minutes): 90 -: The care of a critically ill patient is dynamic. This note represents a static moment in the admission process. Orders and treatments may be given simultaneously and urgently, and time is not safety representative of the treatment process. This patient requires Critical Care secondary to life threatening organ or limb dysfunction. Without Critical Care services, the patient is at risk for increased mortality and morbidity. <JULIAN KAM - Last Filed: 05/18/19 08:50> HPI - . Plan Summary: I personally discussed the findings, case and care provided by SHEEP CLIPPER Aleks. He was aware of a possible sepsis identified by positive sirs criteria and appropriately started antibiotics. In looking back on past CT scans patient has a large hiatal hernia in the past and I am concerned that this may be contributing to her pulmonary disease dysfunction. Patient also has significant emphysema and a screen for genotype for alpha-1 antitrypsin has been sent. We have decreased the tidal volume on the ventilator to support her height and weight. Appreciate the management and care provided by nurse practitioner Aleks Physical Exam Vital Signs: Temp Pulse Resp BP Pulse Ox 100.9 F H 107 H 21 H 119/82 98 05/18/19 05:22 05/18/19 01:11 05/18/19 06:38 05/18/19 06:38 05/18/19 06:38 Intake & Output 05/17/19 05/18/19 05/19/19 06:59 06:59 06:59 Intake Total 2065 Output Total 310 Balance 1755 Weight 60.8 kg Weight/Height Weight 60.8 kg Height 5 ft 5 in Laboratory/Radiographs Laboratory Results: 05/18/19 02:02 05/18/19 02:02 05/17/19 05/17/19 05/17/19 21:29 21:29 21:29 WBC 13.7 H RBC 4.88 Hgb 13.2 Hct 42.0 MCV 86 MCH 27.1 MCHC 31.4 L RDW 14.5 H Plt Count 396 Seg Neutrophils % 78.4 H Carbonic Acid HCO3/H2CO3 Ratio ABG pH ABG pCO2 ABG pO2 ABG HCO3 ABG O2 Saturation ABG Base Excess FiO2 Sodium 141.8 Potassium 4.0 Chloride 98 Carbon Dioxide 30 Anion Gap 14 BUN 12 Creatinine 0.64 Est GFR ( Amer) > 60 Glucose 318 H Lactic Acid 3.6 H Calcium 9.3 Phosphorus Magnesium Total Bilirubin 0.3 AST 25 Alkaline Phosphatase 135 H C-Reactive Protein Total Protein 6.3 Albumin 3.6 Urine Color Urine Appearance Urine pH Ur Specific [place] Urine Protein Urine Glucose (UA) Urine Ketones Urine Blood Urine RBC (Auto) 05/17/19 05/18/19 05/18/19 21:40 00:45 00:45 WBC RBC Hgb Hct MCV MCH MCHC RDW Plt Count Seg Neutrophils % Carbonic Acid 2.43 H 1.88 H HCO3/H2CO3 Ratio 11:1 15:1 ABG pH 7.15 L* 7.28 L ABG pCO2 80.8 H* 62.6 H ABG pO2 161.1 H 112.0 H ABG HCO3 27.3 H 29.0 H ABG O2 Saturation 98.4 H 97.5 ABG Base Excess -3.7 0.8 FiO2 40% 40% Sodium Potassium Chloride Carbon Dioxide Anion Gap BUN Creatinine Est GFR ( Amer) Glucose Lactic Acid Calcium Phosphorus Magnesium Total Bilirubin AST Alkaline Phosphatase C-Reactive Protein Total Protein Albumin Urine Color YELLOW Urine Appearance SLIGHTLY-CLOUDY Urine pH 6.0 Ur Specific [place] 1.012 Urine Protein 100 H Urine Glucose (UA) 50 H Urine Ketones NEGATIVE Urine Blood SMALL H Urine RBC (Auto) 2 05/18/19 05/18/19 05/18/19 02:02 02:02 02:02 WBC 14.4 H RBC 4.57 Hgb 12.4 Hct 38.3 MCV 84 MCH 27.2 MCHC 32.5 RDW 14.2 H Plt Count 257 Seg Neutrophils % Not Reportable Carbonic Acid HCO3/H2CO3 Ratio ABG pH ABG pCO2 ABG pO2 ABG HCO3 ABG O2 Saturation ABG Base Excess FiO2 Sodium 143.2 Potassium 4.4 Chloride 105 Carbon Dioxide 29 Anion Gap 9 BUN 15 Creatinine 0.81 Est GFR ( Amer) > 60 Glucose 139 H Lactic Acid 2.9 H Calcium 9.2 Phosphorus 5.0 H Magnesium 2.8 H Total Bilirubin AST Alkaline Phosphatase C-Reactive Protein Total Protein Albumin Urine Color Urine Appearance Urine pH Ur Specific [place] Urine Protein Urine Glucose (UA) Urine Ketones Urine Blood Urine RBC (Auto) 05/18/19 05/18/19 02:02 04:47 WBC RBC Hgb Hct MCV MCH MCHC RDW Plt Count Seg Neutrophils % Carbonic Acid 1.34 HCO3/H2CO3 Ratio 21:1 ABG pH 7.43 ABG pCO2 44.4 ABG pO2 96.8 ABG HCO3 29.1 H ABG O2 Saturation 97.5 ABG Base Excess 4.3 FiO2 30% Sodium Potassium Chloride Carbon Dioxide Anion Gap BUN Creatinine Est GFR ( Amer) Glucose Lactic Acid Calcium Phosphorus Magnesium Total Bilirubin AST Alkaline Phosphatase C-Reactive Protein 48.9 H Total Protein Albumin Urine Color Urine Appearance Urine pH Ur Specific [place] Urine Protein Urine Glucose (UA) Urine Ketones Urine Blood Urine RBC (Auto) 05/17/19 05/18/19 21:29 02:02 Troponin I 0.248 1.010 Critical Time -: The care of a critically ill patient is dynamic. This note represents a static moment in the admission process. Orders and treatments may be given simultaneously and urgently, and time is not safety representative of the treatment process. This patient requires Critical Care secondary to life threatening organ or limb dysfunction. Without Critical Care services, the patient is at risk for increased mortality and morbidity.
[2019-05-18 05:41] LABS: ARTERIAL BLOOD BASE EXCESS 4.3 mmol/L; ARTERIAL BLOOD H2CO3 1.34 mmol/L (1.05-1.35); ARTERIAL BLOOD HCO3 29.1 mmol/L (20-24); ARTERIAL BLOOD O2 SATURATION 97.5 % (94-98); ARTERIAL BLOOD PCO2 44.4 mmHg (35-45); ARTERIAL BLOOD PH 7.43 (7.35-7.45); ARTERIAL BLOOD PO2 96.8 mmHg (80-100); ARTERIAL BLOOD TOTAL CO2 30.4 mmol/L (21-25)
[2019-05-18 05:44] LABS: ARTERIAL BLOOD FIO2 30%
[2019-05-18] MEDS ORDERED: METHYLPREDNISOLONE INJ 40 MG/1 ML SDV IV SCH (06:00)
[2019-05-18 06:06] LABS: URINE AMPHETAMINES SCREEN NEGATIVE; URINE BARBITURATES SCREEN NEGATIVE; URINE BENZODIAZEPINES SCREEN NEGATIVE; URINE COCAINE SCREEN NEGATIVE; URINE MARIJUANA (THC) SCREEN NEGATIVE; URINE METHADONE SCREEN NEGATIVE; URINE PHENCYCLIDINE SCREEN NEGATIVE
[2019-05-18] MEDS: IPRATROPIUM/ALBUTEROL 0.5-2.5 MG/3 ML AMPUL NEB SCH ×4 (07:05→20:53)
--- NOTE | 2019-05-18 08:56 | RADIOLOGY REPORT (SQ) ---
EXAM DESCRIPTION: CHEST SINGLE VIEW COMPLETED DATE/TIME: 05/18/2019 6:05 am REASON FOR STUDY: respiratory failure COMPARISON: 05/17/2019 EXAM PARAMETERS: NUMBER OF VIEWS: One view TECHNIQUE: Single frontal radiograph of the chest. RADIATION DOSE: N/A LIMITATIONS: None. FINDINGS: TEMPORARY SUPPORT DEVICES:ETT in expected location. NG tube courses below the rd-diaphr agm in to the stomach. LUNGS AND PLEURA: No opacities. No effusions. No masses. Hyperinflation. No pneumothorax. MEDIASTINUM AND HILAR STRUCTURES: No masses. Contour normal. HEART AND VASCULAR STRUCTURES: Heart normal in size. normal vascularity. Aorta normal for age. BONES: No acute findings. OTHER: No other significant finding. IMPRESSION: COPD. No acute infiltrates. SUPPORT DEVICE(S) IN EXPECTED LOCATIONS. TECHNICAL DOCUMENTATION: JOB ID: [id number] [employer]- All Rights Reserved Reading location - IP/workstation name: [email or web address]
--- NOTE | 2019-05-18 09:11 | RADIOLOGY REPORT (SQ) ---
EXAM DESCRIPTION: CT CHEST WITH COMPLETED DATE/TIME: 05/18/2019 8:57 am REASON FOR STUDY: hiatal hernia COMPARISON: 05/18/2019 TECHNIQUE: CT scan of the chest performed using helical scanning technique with dynamic intravenous contrast injection. Images reviewed with lung, soft tissue and bone windows. Reconstructed coronal and sagittal MPR and MIP images reviewed. All images stored on PACS. All CT scanners at this facility use dose modulation, iterative reconstruction, and/or weight based d osing when appropriate to reduce radiation dose to as low as reasonably achievable (ALARA). [facility]: Dose Right [facility]: CareDose [facility]: Dose Right [facility]: Teradose 4D [facility]: [employer] CONTRAST TYPE AND DOSE: Not recorded RENAL FUNCTION: GFR > 60. RADIATION DOSE: CT Rad equipment meets quality standard of care and radiation dose reduction techniq ues were employed. CTDIvol: 7.0 mGy. DLP: 295 mGy-cm. . LIMITATIONS: None. FINDINGS: LUNGS AND PLEURA: Scarring in the right apex. Very minimal parenchymal opacity in the sup erior segment of the right lower lobe. No pneumothorax. HILAR AND MEDIASTINAL STRUCTURES: No identified masses or abnormal nodes. HEART AND VASCULAR STRUCTURES: No aneurysm or dissection. No central pulmonary emboli. No pericardi al effusion. HARDWARE: ETT in good position. Nasogastric tube present. UPPER ABDOMEN: No significant findings. Limited exam. THYROID AND OTHER SOFT TISSUES: No masses. No adenopathy. BONES: Scoliosis. OTHER: No other significant finding. IMPRESSION: Minimal parenchymal opacity superior segment of the right lower lobe. Scoliosis. TECHNICAL DOCUMENTATION: JOB ID: [id number] Quality ID # [id number]: Final reports with documentation of one or more dose reduction techniques (e.g., Au tomated exposure control, adjustment of the mA and/or kV according to patient size, use of iterative reconstruction technique) 2010 [email or web address]- All Rights Reserved Reading location - IP/workstation name: [email or web address]
[2019-05-18] MEDS: FAMOTIDINE INJ/PF 20 MG/2 ML SDV IV SCH ×2 (09:14→22:16)
[2019-05-18] MEDS: ENOXAPARIN SODIUM INJ 40 MG/0.4 ML DISP.SYRIN SUBCUT SCH (09:14)
--- NOTE | 2019-05-18 09:27 | EKG REPORT ---
SEVERITY:- ABNORMAL ECG - SINUS TACHYCARDIA VENTRICULAR PREMATURE COMPLEX PROBABLE LEFT ATRIAL ABNORMALITY CONSIDER ANTEROSEPTAL INFARCT NONSPECIFIC T ABNORMALITIES, LATERAL LEADS : Confirmed by: Maggie Wallace 18-May-2019 09:27:05
[2019-05-18] MEDS ORDERED: CEFEPIME 2 GM/D5W RTU 2 GM/50 ML RTUPB IV SCH (10:00)
[2019-05-18 10:44] LABS: FREE T3 2.41 pg/mL (2.77-5.27); FREE T4 (FREE THYROXINE) 1.04 ng/dL (0.78-2.19)
[2019-05-18 10:58] LABS: THYROID STIMULATING HORMONE 0.39 uIU/mL (0.47-4.68)
[2019-05-18] MEDS ORDERED: CEFEPIME HCL 2 GM in DEXTROSE 5%-WATER 50 ML IV SCH (14:00)
--- NOTE | 2019-05-18 14:38 | PDOC CRITICAL CARE PROG REPORT ---
General Date:: 05/18/19 ICU Day:: 2 Ventilator Day:: 2 Hospital Day:: 2 Resuscitation Status: Full Code Medical Power of Crusher Tender: , Norbert, Daughter Events in the past 12 to 24 Hours:: Patient admitted last evening for acute hypercarbic and hypoxic respiratory failure. She has steadily improved. Has not been hemodynamically unstable. Review of systems relevant to events:: There has been no fever. She is an active smoker. There is a suspicious history of cardiomyopathy in the past but the family is unaware. Side critical care echo was done which does show septal changes with dyskinesis and an ejection fraction that appears to be 30%. No evidence of pleural effusion or pulmonary edema. Reason for ICU Addmission:: acute respiratory failure due to hypoxia and hypercapnia - Medications: Medications reviewed and adjusted accordingly: Yes Vasopressors:: None Sedation:: None Physical Exam Vital Signs: Temp Pulse Resp BP Pulse Ox 101.3 F H 111 H 20 95/70 L 100 05/18/19 08:00 05/18/19 10:00 05/18/19 11:01 05/18/19 11:01 05/18/19 11:01 Intake & Output 05/17/19 05/18/19 05/19/19 06:59 06:59 06:59 Intake Total 2065 85 Output Total 310 360 Balance 1755 -275 Weight 60.8 kg 60.8 kg Weight/Height Weight 60.8 kg Height 5 ft 5 in General appearance: PRESENT: no acute distress, thin, well-developed Exam: Intubated nontoxic, thin, ill 58-year-old female no acute distress Head exam: PRESENT: atraumatic, normocephalic Eye exam: PRESENT: conjunctiva pink, PERRLA. ABSENT: conjunctival injection, nystagmus, scleral icterus Ear exam: PRESENT: normal external ear exam Mouth exam: PRESENT: moist, neck supple Neck exam: ABSENT: carotid bruit, JVD, lymphadenopathy, thyromegaly Respiratory exam: PRESENT: clear to auscultation teri, unlabored. ABSENT: accessory muscle use, tachypnea, wheezes Cardiovascular exam: PRESENT: RRR. ABSENT: diastolic murmur, rubs, systolic murmur Pulses: PRESENT: +1 pedal pulses bilateral GI/Abdominal exam: PRESENT: normal bowel sounds, soft. ABSENT: distended, guarding, mass, organolmegaly, rebound, tenderness Rectal exam: PRESENT: deferred Gentrourinary exam: PRESENT: indwelling catheter Extremities exam: ABSENT: pedal edema Musculoskeletal exam: ABSENT: deformity, dislocation Neurological exam: PRESENT: altered - Responsive. Attempts to speak. No focal deficits, awake. ABSENT: motor sensory deficit Psychiatric exam: PRESENT: appropriate affect Focused psych exam: ABSENT: psychomotor agitation, restlessness Skin exam: PRESENT: dry, intact, warm. ABSENT: cyanosis, mottled, pallor, rash Tubes/Lines: PRESENT: Endotracheal Tube, Other - Lentz, OGT Laboratory/Radiographs Laboratory Results: 05/18/19 02:02 05/18/19 02:02 05/17/19 05/17/19 05/17/19 21:29 21:29 21:29 WBC 13.7 H RBC 4.88 Hgb 13.2 Hct 42.0 MCV 86 MCH 27.1 MCHC 31.4 L RDW 14.5 H Plt Count 396 Seg Neutrophils % 78.4 H Carbonic Acid HCO3/H2CO3 Ratio ABG pH ABG pCO2 ABG pO2 ABG HCO3 ABG O2 Saturation ABG Base Excess FiO2 Sodium 141.8 Potassium 4.0 Chloride 98 Carbon Dioxide 30 Anion Gap 14 BUN 12 Creatinine 0.64 Est GFR ( Amer) > 60 Glucose 318 H Lactic Acid 3.6 H Calcium 9.3 Phosphorus Magnesium Total Bilirubin 0.3 AST 25 Alkaline Phosphatase 135 H C-Reactive Protein Total Protein 6.3 Albumin 3.6 TSH Free T4 Free T3 pg/mL Urine Color Urine Appearance Urine pH Ur Specific Decker Urine Protein Urine Glucose (UA) Urine Ketones Urine Blood Urine RBC (Auto) 05/17/19 05/18/19 05/18/19 21:40 00:45 00:45 WBC RBC Hgb Hct MCV MCH MCHC RDW Plt Count Seg Neutrophils % Carbonic Acid 2.43 H 1.88 H HCO3/H2CO3 Ratio 11:1 15:1 ABG pH 7.15 L* 7.28 L ABG pCO2 80.8 H* 62.6 H ABG pO2 161.1 H 112.0 H ABG HCO3 27.3 H 29.0 H ABG O2 Saturation 98.4 H 97.5 ABG Base Excess -3.7 0.8 FiO2 40% 40% Sodium Potassium Chloride Carbon Dioxide Anion Gap BUN Creatinine Est GFR ( Amer) Glucose Lactic Acid Calcium Phosphorus Magnesium Total Bilirubin AST Alkaline Phosphatase C-Reactive Protein Total Protein Albumin TSH Free T4 Free T3 pg/mL Urine Color YELLOW Urine Appearance SLIGHTLY-CLOUDY Urine pH 6.0 Ur Specific Decker 1.012 Urine Protein 100 H Urine Glucose (UA) 50 H Urine Ketones NEGATIVE Urine Blood SMALL H Urine RBC (Auto) 2 05/18/19 05/18/19 05/18/19 02:02 02:02 02:02 WBC 14.4 H RBC 4.57 Hgb 12.4 Hct 38.3 MCV 84 MCH 27.2 MCHC 32.5 RDW 14.2 H Plt Count 257 Seg Neutrophils % Not Reportable Carbonic Acid HCO3/H2CO3 Ratio ABG pH ABG pCO2 ABG pO2 ABG HCO3 ABG O2 Saturation ABG Base Excess FiO2 Sodium 143.2 Potassium 4.4 Chloride 105 Carbon Dioxide 29 Anion Gap 9 BUN 15 Creatinine 0.81 Est GFR ( Amer) > 60 Glucose 139 H Lactic Acid 2.9 H Calcium 9.2 Phosphorus 5.0 H Magnesium 2.8 H Total Bilirubin AST Alkaline Phosphatase C-Reactive Protein Total Protein Albumin TSH Free T4 Free T3 pg/mL Urine Color Urine Appearance Urine pH Ur Specific Decker Urine Protein Urine Glucose (UA) Urine Ketones Urine Blood Urine RBC (Auto) 05/18/19 05/18/19 05/18/19 02:02 04:47 09:35 WBC RBC Hgb Hct MCV MCH MCHC RDW Plt Count Seg Neutrophils % Carbonic Acid 1.34 HCO3/H2CO3 Ratio 21:1 ABG pH 7.43 ABG pCO2 44.4 ABG pO2 96.8 ABG HCO3 29.1 H ABG O2 Saturation 97.5 ABG Base Excess 4.3 FiO2 30% Sodium Potassium Chloride Carbon Dioxide Anion Gap BUN Creatinine Est GFR ( Amer) Glucose Lactic Acid 2.1 Calcium Phosphorus Magnesium Total Bilirubin AST Alkaline Phosphatase C-Reactive Protein 48.9 H Total Protein Albumin TSH Free T4 Free T3 pg/mL Urine Color Urine Appearance Urine pH Ur Specific Decker Urine Protein Urine Glucose (UA) Urine Ketones Urine Blood Urine RBC (Auto) 05/18/19 09:35 WBC RBC Hgb Hct MCV MCH MCHC RDW Plt Count Seg Neutrophils % Carbonic Acid HCO3/H2CO3 Ratio ABG pH ABG pCO2 ABG pO2 ABG HCO3 ABG O2 Saturation ABG Base Excess FiO2 Sodium Potassium Chloride Carbon Dioxide Anion Gap BUN Creatinine Est GFR ( Amer) Glucose Lactic Acid Calcium Phosphorus Magnesium Total Bilirubin AST Alkaline Phosphatase C-Reactive Protein Total Protein Albumin TSH 0.39 L Free T4 1.04 Free T3 pg/mL 2.41 L Urine Color Urine Appearance Urine pH Ur Specific Decker Urine Protein Urine Glucose (UA) Urine Ketones Urine Blood Urine RBC (Auto) 05/17/19 05/18/19 05/18/19 21:29 02:02 09:35 Troponin I 0.248 1.010 0.700 Impressions: Chest CT 05/18/19 00:00 IMPRESSION: Minimal parenchymal opacity superior segment of the right lower lobe. Scoliosis. Chest X-Ray 05/18/19 06:00 IMPRESSION: COPD. No acute infiltrates. SUPPORT DEVICE(S) IN EXPECTED LOCATIONS. All labs, radiographs, diagnostic studies and EKGs were personally reviewed: Yes In addition, reports of radiographic and diagnostic studies were read: Yes Assessment and Plan - Diagnosis (1) Acute respiratory failure with hypoxia and hypercapnia Is this a current diagnosis for this admission?: Yes (2) Cardiomyopathy Qualifiers: Cardiomyopathy type: unspecified Qualified Code(s): I42.9 - Cardiomyopathy, unspecified Is this a current diagnosis for this admission?: Yes Plan: Awaiting formal echocardiogram (3) Emphysema of lung Qualifiers: Emphysema type: other Qualified Code(s): J43.8 - Other emphysema Is this a current diagnosis for this admission?: Yes (4) Asthma Qualifiers: Asthma severity: unspecified severity Asthma persistence: unspecified Asthma complication type: unspecified Qualified Code(s): J45.909 - Unspecified asthma, uncomplicated Is this a current diagnosis for this admission?: Yes (5) QT prolongation Is this a current diagnosis for this admission?: Yes (6) COPD exacerbation Is this a current diagnosis for this admission?: Yes (7) Currently smokes tobacco Is this a current diagnosis for this admission?: Yes (8) Hypovolemia Is this a current diagnosis for this admission?: Yes (10) Elevated troponin I measurement Is this a current diagnosis for this admission?: Yes Plan: Will continue to monitor. May be related to tachycardia. Plan Summary: Will evaluate patient for appropriateness to wean in hopes to liberate from the ventilator. Obtain CT scan to evaluate for any underlying pneumonia or interstitial lung disease. Was noted on previous CAT scans to have hiatal hernia and will also evaluate for any complications associated with this which may add to her pulm onary demise. Will screen phenotype for alpha-1 antitrypsin Continue steroids every 12 hours. Patient does not appear to have infection of the lung however she did present with positive criteria for potential sepsis. We will continue antibiotics until we have negative cultures. Unfortunately we do not have procalcitonin to guide de-escalation of therapy. Patient appears thin and may have pulmonary cachexia. We will continue to monitor and review her ADLs when she is liberated from the ventilator. Has productive tracheal secretions, will check gram stain and culture. Updated family at bedside. Critical Time Critical Time (minutes): 60 Level of Care: ICU -: 1. The care of a critical patient is a dynamic process. This note is a registration representative synopsis but static in nature. The timeframe for treatments given in order is not necessarily the actual time these treatments may have been done. 2. This patient requires critical care secondary to ongoing requirements for therapy not offered or safe outside the critical care environment. Transfer to a lower level of care will result in altered life or limb morbidity and mortality. 3. Multidisciplinary rounds completed. 4. ABCDE bundle addressed.
[2019-05-18] MEDS ORDERED: DEXMEDETOMIDINE IN 0.9 % NACL 400 MCG/100 ML RTUPB IV ONE (16:08)
[2019-05-18] MEDS: DEXMEDETOMIDINE IN NS 400 MCG/100 ML RTUPB IV PRN (16:10)
[2019-05-18] MEDS: METHYLPREDNISOLONE INJ 40 MG/1 ML SDV IV SCH (18:23)
--- NOTE | 2019-05-18 19:06 | XCELERA REPORT ---
[address] [address] Transthoracic Echocardiogram Report Name: NILSA MORALES Age: 58 yrs Gender: Female : 1960 Patient Status: Inpatient Patient Location: ICU^608^A Study Date: 05/18/2019 03:22 PM Height: 60 in Weight: 134 lb BSA: 1.6 m2 Procedure: A two-dimensional transthoracic echocardiogram with color flow and Doppler was performed. The study was technically difficult with many images being suboptimal in quality. Reason For Study: eval overall heart function given resp fail, HOTN History: CARDIOMYOPATHY / RESPIRATORY FAILURE. Ordering Physician: JIGAR ARAMBULA Performed By: Hailey Rose Interpretation Summary The left ventricle is normal in size. There is normal left ventricular wall thickness. LV EF is 35% Left ventricular systolic function is moderately reduced. Doppler measurements suggest impaired left ventricular relaxation, which is associated with grade I/IV or mild diastolic dysfunction There is moderate global hypokinesis of the left ventricle. There is no thrombus. Probably no ASD, VSD,or PFO. The right ventricle is normal in size and function. The right ventricle is not well visualized secondary to technical limitations The right atrium is normal. The left atrial size is normal. There is no evidence of mitral valve prolapse. There is no vegetation seen on the mitral valve. There is no mitral valve stenosis. There is a trace amount of mitral regurgitation There is no aortic valvular vegetation. There is no aortic valve stenosis There is no LVOT obstruction. No aortic regurgitation is present. There is no tricuspid stenosis. There is a mild amount of tricuspid regurgitation There is moderate pulmonary hypertension by echo RVSP is at least 48 mm of Hg, with RA mean of at least 20. There is no pulmonic valvular stenosis. There is no pulmonic valvular regurgitation. The aortic root is normal size. The inferior vena cava appeared dilated and did not change with respiration (RAP > 20 mmHg) There is no pericardial effusion. MMode/2D Measurements & Calculations RVDd: 2.0 cm LVIDd: 3.2 cm FS: 16.3 % Ao root diam: 2.8 cm IVSd: 1.1 cm LVIDs: 2.7 cm EDV(Teich): Ao root area: LVPWd: 0.97 cm 42.0 ml 6.0 cm2 ESV(Teich): LA dimension: 2.5 cm 27.2 ml EF(Teich): 35.2 % LVLd ap4: 6.3 cm SV(MOD-sp4): EDV(MOD-sp4): 26.0 ml 54.0 ml LVLs ap4: 5.9 cm ESV(MOD-sp4): 28.0 ml EF(MOD-sp4): 48.1 % Doppler Measurements & Calculations MV E max olivia: MV P1/2t max olivia: Ao V2 max: LV V1 max P.6 cm/sec 97.1 cm/sec 108.6 cm/sec 2.8 mmHg MV P1/2t: 43.2 msec Ao max P.7 mmHg LV V1 max: MVA(P1/2t): 5.1 cm2 83.4 cm/sec MV dec slope: 658.0 cm/sec2 MV dec time: 0.14 sec PA V2 max: TR max olivia: MV P1/2t-pr_phl: 90.5 cm/sec 265.4 cm/sec 42.7 msec PA max P.3 mmHg TR max P.2 mmHg Left Ventricle The left ventricle is normal in size. There is normal left ventricular wall thickness. LV EF is 35%. Left ventricular systolic function is moderately reduced. Doppler measurements suggest impaired left ventricular relaxation, which is associated with grade I/IV or mild diastolic dysfunction. There is moderate global hypokinesis of the left ventricle. There is no thrombus. Probably no ASD, VSD,or PFO. Right Ventricle The right ventricle is normal in size and function. The right ventricle is not well visualized secondary to technical limitations. Atria The right atrium is normal. The left atrial size is normal. Mitral Valve There is no evidence of mitral valve prolapse. There is no vegetation seen on the mitral valve. There is no mitral valve stenosis. There is a trace amount of mitral regurgitation. Aortic Valve There is no aortic valvular vegetation. There is no aortic valve stenosis. There is no LVOT obstruction. No aortic regurgitation is present. Tricuspid Valve There is no tricuspid stenosis. There is a mild amount of tricuspid regurgitation. There is moderate pulmonary hypertension by echo. RVSP is at least 48 mm of Hg, with RA mean of at least 20. Pulmonic Valve There is no pulmonic valvular stenosis. There is no pulmonic valvular regurgitation. Great Vessels The aortic root is normal size. The inferior vena cava appeared dilated and did not change with respiration (RAP > 20 mmHg). Effusions There is no pericardial effusion. : JIGAR ARAMBULA, Caroline
[2019-05-18] MEDS ORDERED: CEFTRIAXONE 2 GM/D5W RTU 2 GM/50 ML RTUPB IV SCH (20:00)
--- NOTE | 2019-05-18 21:20 | EKG REPORT ---
SEVERITY:- ABNORMAL ECG - SINUS TACHYCARDIA MULTIFORM VENTRICULAR PREMATURE COMPLEXES PROBABLE LEFT ATRIAL ABNORMALITY ANTERIOR INFARCT, AGE INDETERMINATE BORDERLINE T ABNORMALITIES, INFERIOR LEADS BORDERLINE PROLONGED QT INTERVAL : Confirmed by: Maggie Wallace 18-May-2019 21:20:07
[2019-05-18] MEDS ORDERED: IPRATROPIUM/ALBUTEROL 0.5-2.5 MG/3 ML AMPUL NEB SCH ×2 (23:38)
[2019-05-19] MEDS ORDERED: DIAZEPAM INJ 10 MG/2 ML DISP.SYRIN IV ONE ×3 (01:28→15:15)
[2019-05-19] MEDS ORDERED: ALPRAZOLAM 0.5 MG TABLET NG ONE (01:45)
[2019-05-19] MEDS ORDERED: DIAZEPAM INJ 10 MG/2 ML DISP.SYRIN ONE (01:51)
[2019-05-19] MEDS: INSULIN REG, HUMAN 100 UNIT/ML 3 ML VIAL (PYX) SUBCUT SCH ×2 (02:10→06:14)
[2019-05-19] MEDS: IPRATROPIUM/ALBUTEROL 0.5-2.5 MG/3 ML AMPUL NEB SCH ×3 (02:52→15:03)
[2019-05-19 04:34] LABS: ABSOLUTE LYMPHOCYTES (AUTO) 0.6 10^3/uL (0.5-4.7); ABSOLUTE MONOCYTES (AUTO) 0.4 10^3/uL (0.1-1.4); ABSOLUTE NEUT (AUTO) 4.6 10^3/uL (1.7-8.2); BASOPHILS % (AUTO) 0.1 % (0-2); HEMOGLOBIN 10.9 g/dL (12.0-15.5); LYMPHOCYTES % (AUTO) 10.2 % (13-45); MEAN CORPUSCULAR HEMOGLOBIN 27.5 pg (27.0-33.4); MEAN CORPUSCULAR HGB CONC 33.1 g/dL (32.0-36.0); MEAN CORPUSCULAR VOLUME 83 fl (80-97); MONOCYTES % (AUTO) 7.5 % (3-13); PLATELET COUNT 211 10^3/uL (150-450); RED BLOOD COUNT 3.98 10^6/uL (3.72-5.28); RED CELL DISTRIBUTION WIDTH 14.2 % (11.5-14.0); SEGMENTED NEUTROPHILS % (AUTO) 82.2 % (42-78); TOTAL CELLS COUNTED % (AUTO) 100 %; WHITE BLOOD COUNT 5.6 10^3/uL (4.0-10.5)
[2019-05-19] MEDS: PROPOFOL 1,000 MG/100 ML INFUS..BTL IV PRN ×2 (04:48→15:18)
[2019-05-19 04:52] LABS: ANION GAP 6 (5-19); BLOOD UREA NITROGEN 25 mg/dL (7-20); CALCIUM 8.7 mg/dL (8.4-10.2); CARBON DIOXIDE 31 mmol/L (22-30); CHLORIDE 103 mmol/L (98-107); GLUCOSE 124 mg/dL (75-110); PHOSPHORUS 3.5 mg/dL (2.5-4.5); POTASSIUM 3.7 mmol/L (3.6-5.0)
[2019-05-19 05:48] LABS: TROPONIN I 0.115 ng/mL
[2019-05-19] MEDS ORDERED: RINGERS SOLUTION,LACTATED 250 ML IV ONE ×2 (06:04→06:20)
[2019-05-19 06:15] LABS: ARTERIAL BLOOD BASE EXCESS 4.3 mmol/L; ARTERIAL BLOOD FIO2 30%; ARTERIAL BLOOD H2CO3 1.36 mmol/L (1.05-1.35); ARTERIAL BLOOD HCO3 29.2 mmol/L (20-24); ARTERIAL BLOOD PCO2 45.1 mmHg (35-45); ARTERIAL BLOOD PH 7.43 (7.35-7.45); ARTERIAL BLOOD PO2 79.7 mmHg (80-100); ARTERIAL BLOOD TOTAL CO2 30.6 mmol/L (21-25)
[2019-05-19] MEDS: METHYLPREDNISOLONE INJ 40 MG/1 ML SDV IV SCH (06:18)
--- NOTE | 2019-05-19 08:35 | RADIOLOGY REPORT (SQ) ---
EXAM DESCRIPTION: CHEST SINGLE VIEW COMPLETED DATE/TIME: 05/19/2019 6:06 am REASON FOR STUDY: respiratory failure COMPARISON: 05/18/2019 EXAM PARAMETERS: NUMBER OF VIEWS: One view TECHNIQUE: Single frontal radiograph of the chest. RADIATION DOSE: N/A LIMITATIONS: None. FINDINGS: TEMPORARY SUPPORT DEVICES:ETT in expected location. NG tube courses below the rd-diaphr agm in to the stomach. LUNGS AND PLEURA: No opacities. No masses. No effusions. No pneumothorax. MEDIASTINUM AND HILAR STRUCTURES: No masses. Contour normal. HEART AND VASCULAR STRUCTURES: Heart size normal. Normal vascularity. Aorta normal for age BONES: No acute findings. OTHER: No other significant finding. IMPRESSION: NO ACUTE RADIOGRAPHIC FINDING IN THE CHEST. SUPPORT DEVICE(S) IN EXPECTED LOCATIONS. TECHNICAL DOCUMENTATION: JOB ID: [id number] [employer]- All Rights Reserved Reading location - IP/workstation name: [email or web address]
[2019-05-19] MEDS ORDERED: ALBUTEROL SULFATE 0.083% NEB 2.5 MG/3 ML AMPUL NEB PRN ×2 (09:50→12:51)
[2019-05-19] MEDS ORDERED: (PENDING PHARMACY ID) (Duloxetine Hcl [Duloxetine Hcl] 60 MG) PO SCH (10:00)
[2019-05-19] MEDS ORDERED: (PENDING PHARMACY ID) (Clonazepam [Clonazepam] 0.5 MG) PO SCH (10:00)
[2019-05-19] MEDS: FAMOTIDINE INJ/PF 20 MG/2 ML SDV IV SCH (10:13)
[2019-05-19] MEDS: ENOXAPARIN SODIUM INJ 40 MG/0.4 ML DISP.SYRIN SUBCUT SCH (10:14)
[2019-05-19] MEDS ORDERED: LORAZEPAM INJ 2 MG/1 ML VIAL IV ONE (10:15)
[2019-05-19] MEDS: DULOXETINE HCL 30 MG CAPSULE.DR PO SCH ×2 (10:19→10:20)
[2019-05-19] MEDS ORDERED: LURASIDONE HCL 40 MG TABLET PO SCH (11:00)
[2019-05-19] MEDS ORDERED: CLONAZEPAM 1 MG TABLET PO SCH (11:00)
[2019-05-19] MEDS ORDERED: OXCARBAZEPINE 150 MG TABLET PO SCH (11:00)
[2019-05-19] MEDS: DEXMEDETOMIDINE IN NS 400 MCG/100 ML RTUPB IV PRN ×2 (11:38→15:36)
--- NOTE | 2019-05-19 12:58 | PDOC CRITICAL CARE PROG REPORT ---
General Date:: 05/19/19 ICU Day:: 3 Ventilator Day:: 3 Hospital Day:: 3 Resuscitation Status: Full Code Medical Power of Pharmaceutical Physician: , Norbert, Daughter Events in the past 12 to 24 Hours:: 05.19.19: From a respiratory standpoint the patient continues to improve. There is not been any worsening hypoxia nor increased use of mechanical ventilation. Of note she had an echocardiogram done yesterday which shows a reduced ejection fraction to approximately 30 to 35%. Her BNP was elevated on today's labs however she appears intravascularly dry. She is required quite a bit of sedation due to extreme anxiety disorder. Her clonazepam has been restarted. Despite listing an allergy to Ativan she has tolerated Valium which is been essential in controlling her anger agitation and anxiety 05.18.19: Patient admitted last evening for acute hypercarbic and hypoxic respiratory failure. She has steadily improved. Has not been hemodynamically unstable. Review of systems relevant to events:: 05.19.19: Chest x-ray continues to be negative for infiltrate. There is no elevation in peak or plateau pressures on mechanical ventilation. She has been transitioned to pressure support CPAP without difficulty. She is responsive. Had notable increase in troponin that is now decreased. Her EKG shows ST segment changes with complete T wave inversion in all leads. She endorses that she has had a cardiomyopathy but has never had a cardiac catheterization. Notably she is not on any beta-da or diuretic therapy. 05.18.19: There has been no fever. She is an active smoker. There is a suspicious history of cardiomyopathy in the past but the family is unaware. Side critical care echo was done which does show septal changes with dyskinesis and an ejection fraction that appears to be 30%. No evidence of pleural effusion or pulmonary edema. Reason for ICU Addmission:: acute respiratory failure due to hypoxia and hypercapnia - Medications: Vasopressors:: None Sedation:: Propofol and Precedex Physical Exam Vital Signs: Temp Pulse Resp BP Pulse Ox 98.4 F 78 31 H 101/63 99 05/19/19 12:00 05/19/19 12:00 05/19/19 12:00 05/19/19 12:00 05/19/19 12:00 Intake & Output 05/18/19 05/19/19 05/20/19 06:59 06:59 06:59 Intake Total 2065 438 Output Total 310 945 550 Balance 3469 -480 -582 Weight 60.8 kg 63.9 kg Weight/Height Weight 63.9 kg Height 5 ft 5 in General appearance: PRESENT: no acute distress, cooperative, thin Exam: Intubated nontoxic but ill-appearing 68-year-old female no active distress she is awake, responsive and follows commands Head exam: PRESENT: atraumatic, normocephalic Eye exam: PRESENT: conjunctival injection, conjunctiva pink, PERRLA. ABSENT: nystagmus, scleral icterus Mouth exam: PRESENT: dry mucosa, neck supple Neck exam: ABSENT: carotid bruit, JVD, lymphadenopathy, thyromegaly Respiratory exam: PRESENT: clear to auscultation teri, unlabored. ABSENT: accessory muscle use, rales, rhonchi, tachypnea, wheezes Cardiovascular exam: PRESENT: RRR. ABSENT: diastolic murmur, rubs, systolic murmur Pulses: PRESENT: +1 pedal pulses bilateral GI/Abdominal exam: PRESENT: normal bowel sounds, soft. ABSENT: ascites, distended, guarding, mass, organolmegaly, rebound, tenderness Gentrourinary exam: PRESENT: indwelling catheter Extremities exam: PRESENT: pedal edema Musculoskeletal exam: PRESENT: normal inspection. ABSENT: deformity, dislocation, tenderness Neurological exam: PRESENT: awake. ABSENT: motor sensory deficit - GCS on propofol and precedex: 3-2i-6. Attempts to speak Psychiatric exam: ABSENT: agitated Focused psych exam: ABSENT: psychomotor agitation, restlessness Skin exam: PRESENT: dry, intact, normal color, warm. ABSENT: cyanosis, mottled, rash Tubes/Lines: PRESENT: Endotracheal Tube, Other - OGT and romero present Laboratory/Radiographs Laboratory Results: 05/19/19 04:17 05/19/19 04:17 05/19/19 05/19/19 05/19/19 04:17 04:17 04:44 WBC 5.6 RBC 3.98 Hgb 10.9 L Hct 33.0 L MCV 83 MCH 27.5 MCHC 33.1 RDW 14.2 H Plt Count 211 Seg Neutrophils % 82.2 H Carbonic Acid Cancelled HCO3/H2CO3 Ratio Cancelled ABG pH Cancelled ABG pCO2 Cancelled ABG pO2 Cancelled ABG HCO3 Cancelled ABG O2 Saturation Cancelled ABG Base Excess Cancelled FiO2 Cancelled Sodium 139.7 Potassium 3.7 Chloride 103 Carbon Dioxide 31 H Anion Gap 6 BUN 25 H Creatinine 0.62 Est GFR ( Amer) > 60 Glucose 124 H Calcium 8.7 Phosphorus 3.5 Magnesium 2.3 05/19/19 05:20 WBC RBC Hgb Hct MCV MCH MCHC RDW Plt Count Seg Neutrophils % Carbonic Acid 1.36 H HCO3/H2CO3 Ratio 21:1 ABG pH 7.43 ABG pCO2 45.1 H ABG pO2 79.7 L ABG HCO3 29.2 H ABG O2 Saturation 96.0 ABG Base Excess 4.3 FiO2 30% Sodium Potassium Chloride Carbon Dioxide Anion Gap BUN Creatinine Est GFR ( Amer) Glucose Calcium Phosphorus Magnesium 05/17/19 05/18/19 05/18/19 21:29 02:02 09:35 Troponin I 0.248 1.010 0.700 NT-Pro-B Natriuret Pep 05/19/19 05:12 Troponin I 0.115 NT-Pro-B Natriuret Pep 5080 H Impressions: Chest CT 05/18/19 00:00 IMPRESSION: Minimal parenchymal opacity superior segment of the right lower lobe. Scoliosis. Chest X-Ray 05/19/19 06:00 IMPRESSION: NO ACUTE RADIOGRAPHIC FINDING IN THE CHEST. SUPPORT DEVICE(S) IN EXPECTED LOCATIONS. All labs, radiographs, diagnostic studies and EKGs were personally reviewed: Yes In addition, reports of radiographic and diagnostic studies were read: Yes Assessment and Plan - Diagnosis (1) Acute respiratory failure with hypoxia and hypercapnia Is this a current diagnosis for this admission?: Yes (2) Cardiomyopathy Qualifiers: Cardiomyopathy type: unspecified Qualified Code(s): I42.9 - Cardiomyopathy, unspecified Is this a current diagnosis for this admission?: Yes Plan: Formal echo confirms critical care bedside echocardiography which shows reduced ejection fraction. Suspect this is been longstanding (3) Emphysema of lung Qualifiers: Emphysema type: other Qualified Code(s): J43.8 - Other emphysema Is this a current diagnosis for this admission?: Yes (4) Asthma Qualifiers: Asthma severity: unspecified severity Asthma persistence: unspecified Asthma complication type: unspecified Qualified Code(s): J45.909 - Unspecified asthma, uncomplicated Is this a current diagnosis for this admission?: Yes (5) QT prolongation Is this a current diagnosis for this admission?: Yes Plan: QT C prolongation had improved but slightly large this morning. Supplementing magnesium as needed Stop Remeron. Reviewed other medications. Proprofol can prolong and will reduce dose (6) COPD exacerbation Is this a current diagnosis for this admission?: Yes (7) Currently smokes tobacco Is this a current diagnosis for this admission?: Yes (8) Hypovolemia Is this a current diagnosis for this admission?: Yes (10) Elevated troponin I measurement Is this a current diagnosis for this admission?: Yes Plan: Spoke with Cardiology. Will see today. Await liberation from ventilator. Plan Summary: 05.19.19: Patient's respiratory status has improved. Have placed on SBT with intent to liberate once cardiology has evaluated the patient. I am suspicious for a possible ischemic process in addition to a chronic cardiomyopathy. Patient may need heart cath and and keeping her intubated until this can be determined. I have withheld use of aspirin because of her advanced reactive airway disease. We may try this while on a ventilator to determine whether she will have any reaction. We will continue steroids but reduced dose. We are awaiting the alpha-1 genotype studies Patient has extreme anxiety disorder. Have restarted her baseline medications except for Trileptal. May need to adjust because of her QTC. To control agitation have also started her on nicotine patch for nicotine withdrawal. DC antibiotics. 05.18.19: Will evaluate patient for appropriateness to wean in hopes to liberate from the ventilator. Obtain CT scan to evaluate for any underlying pneumonia or interstitial lung disease. Was noted on previous CAT scans to have hiatal hernia and will also evaluate for any complications associated with this which may add to her pulmonary demise. Will screen phenotype for alpha-1 antitrypsin Continue steroids every 12 hours. Patient does not appear to have infection of the lung however she did present with positive criteria for potential sepsis. We will continue antibiotics until we have negative cultures. Unfortunately we do not have procalcitonin to guide de-escalation of therapy. Patient appears thin and may have pulmonary cachexia. We will continue to monitor and review her ADLs when she is liberated from the ventilator. Has productive tracheal secretions, will check gram stain and culture. Updated family at bedside. Critical Time Critical Time (minutes): 65 Level of Care: ICU Anticipated discharge: Home Within: within 72 hours -: 1. The care of a critical patient is a dynamic process. This note is a contracts representative synopsis but static in nature. The timeframe for treatments given in order is not necessarily the actual time these treatments may have been done. 2. This patient requires critical care secondary to ongoing requirements for th erapy not offered or safe outside the critical care environment. Transfer to a lower level of care will result in altered life or limb morbidity and mortality. 3. Multidisciplinary rounds completed. 4. ABCDE bundle addressed.
[2019-05-19] MEDS ORDERED: HEPARIN SODIUM,PORCINE/D5W 25,000 UNIT/250 ML RTUINJ IV PRN (13:47)
[2019-05-19] MEDS ORDERED: NICOTINE 21 MG/24 HR PATCH.TD24 TD SCH (14:00)
[2019-05-19] MEDS: MAGNESIUM SULFATE/D5W 1 GM/100 ML RTUPB IV SCH ×2 (14:08→15:19)
[2019-05-19 14:10] LABS: ABSOLUTE LYMPHOCYTES (AUTO) 0.4 10^3/uL (0.5-4.7); ABSOLUTE MONOCYTES (AUTO) 0.3 10^3/uL (0.1-1.4); ABSOLUTE NEUT (AUTO) 4.5 10^3/uL (1.7-8.2); MONOCYTES % (AUTO) 4.9 % (3-13); SEGMENTED NEUTROPHILS % (AUTO) 86.9 % (42-78); TOTAL CELLS COUNTED % (AUTO) 100 %; WHITE BLOOD COUNT 5.2 10^3/uL (4.0-10.5)
[2019-05-19 14:13] LABS: HEMATOCRIT 33.7 % (36.0-47.0); HEMOGLOBIN 11.2 g/dL (12.0-15.5); LYMPHOCYTES % (AUTO) 8.2 % (13-45); MEAN CORPUSCULAR HEMOGLOBIN 27.5 pg (27.0-33.4); MEAN CORPUSCULAR HGB CONC 33.4 g/dL (32.0-36.0); MEAN CORPUSCULAR VOLUME 82 fl (80-97); PLATELET COUNT 224 10^3/uL (150-450); RED BLOOD COUNT 4.09 10^6/uL (3.72-5.28)
[2019-05-19 14:16] LABS: INTERNATIONAL RATION (INR) 1.02; PROTHROMBIN TIME 13.4 SEC (11.4-15.4)
[2019-05-19 14:17] LABS: PARTIAL THROMBOPLASTIN TIME 32.3 SEC (23.5-35.8)
--- NOTE | 2019-05-19 14:41 | PDOC TRANSFER SUMMARY ---
General Admission Date/PCP: 05/17/19 23:51 STEVEN BECERRIL PA-C Admission Date: 05/17/19 Transfer Date: 05/19/19 Accepting Facility: [facility] Accepting Physician: Dr. Joyce Resuscitation Status: Full Code - Transfer Diagnosis (1) NSTEMI, initial episode of care Is this a current diagnosis for this admission?: Yes (2) Acute respiratory failure with hypoxia and hypercapnia Is this a current diagnosis for this admission?: Yes (3) Cardiomyopathy Is this a current diagnosis for this admission?: Yes (4) Emphysema of lung Is this a current diagnosis for this admission?: Yes (5) Asthma Is this a current diagnosis for this admission?: Yes (6) QT prolongation Is this a current diagnosis for this admission?: Yes (7) COPD exacerbation Is this a current diagnosis for this admission?: Yes (8) Currently smokes tobacco Is this a current diagnosis for this admission?: Yes (9) Hypovolemia Is this a current diagnosis for this admission?: Yes (10) Tobacco abuse Is this a current diagnosis for this admission?: Yes (11) Elevated troponin I measurement Is this a current diagnosis for this admission?: Yes - Transfer Medications Home Medications: Albuterol Sulfate [Albuterol Sulfate Hfa] 2 puff IH Q6HP PRN 12/09/13 Budesonide/Formoterol Fumarate [Symbicort HFA 160-4.5 mcg Inhaler 6 gm] 2 puff IN Q12 06/15/15 Clonazepam 0.5 mg PO Q12 05/18/19 Duloxetine HCl 60 mg PO Q12 05/18/19 Lurasidone HCl [Latuda 40 mg Tablet] 40 mg PO DAILY 05/18/19 Mirtazapine [Remeron] 22.5 mg PO QHS 05/18/19 Oxcarbazepine [Trileptal] 150 mg PO Q12 05/18/19 Prednisone [Deltasone] 20 mg PO DAILY 05/18/19 Tiotropium Maben [Spiriva Respimat] 2 puff IH DAILY 05/18/19 Albuterol Sulfate [Ventolin 0.083% Neb 2.5 mg/3 ml Ampul] 1 vial NEB RTQ6HP PRN 05/19/19 Transfer Medications: Current Medications Albuterol (Ventolin 0.083% Neb 2.5 Mg/3 Ml Ampul) 2.5 mg NEB RTQ1HP PRN PRN Reason: cough/wheezing Stop: 06/18/19 12:49 Albuterol/Ipratropium (Duoneb 3 Ml Ampul) 3 ml NEB RTQ6 [facility] Last Admin: 05/19/19 08:22 Dose: 3 ml Documented by: Clonazepam (Klonopin 1 Mg Tablet) 0.5 mg PO Q12 [facility] Stop: 05/26/19 10:59 Last Admin: 05/19/19 10:13 Dose: 0.5 mg Documented by: Duloxetine HCl (Cymbalta 30 Mg Capsule.Dr) 60 mg PO Q12 [facility] Stop: 06/18/19 10:59 Last Admin: 05/19/19 10:19 Dose: 60 mg Documented by: Enoxaparin Sodium (Lovenox Inj 40 Mg/0.4 Ml Disp.Syrin) 40 mg SUBCUT DAILY [facility] Stop: 06/17/19 09:59 Last Admin: 05/19/19 10:14 Dose: 40 mg Documented by: Famotidine (Pepcid Inj/Pf 20 Mg/2 Ml Sdv) 20 mg IV Q12 [facility] Stop: 06/17/19 09:59 Last Admin: 05/19/19 10:13 Dose: 20 mg Documented by: Propofol (Diprivan Rtu 1000 Mg/100 Ml Inf.Bottle) 1,000 mg in 100 mls @ 1.881 mls/hr IV CONTINUOUS PRN; Protocol PRN Reason: THIS MED IS NOT "PRN" Stop: 06/16/19 23:31 Last Admin: 05/19/19 04:48 Dose: 25 mcg/kg/min, 9.41 mls/hr Documented by: Dexmedetomidine/Sodium Chloride (Precedex 400 Mcg/Ns 100 Ml Iv Premix) 400 mcg in 100 mls @ 6.08 mls/hr IV CONTINUOUS PRN; Protocol PRN Reason: THIS MED IS NOT "PRN" Stop: 06/17/19 16:17 Last Titration: 05/18/19 22:15 Dose: 0.6 mcg/kg/hr, 9.12 mls/hr Documented by: Magnesium Sulfate/Dextrose (Magnesium Sulfate Rtu-D5w 1 Gm/100 Ml Premix) 1 gm in 100 mls @ 100 mls/hr IV Q1H [facility] Stop: 05/19/19 15:14 Lurasidone HCl (Latuda 40 Mg Tablet) 40 mg PO DAILY [facility] Stop: 06/18/19 10:59 Last Admin: 05/19/19 10:13 Dose: 40 mg Documented by: Methylprednisolone Sodium Succinate (Solu-Medrol Inj/Pf 40 Mg/1 Ml Sdv) 40 mg IV Q12A [facility] Stop: 06/17/19 17:59 Last Admin: 05/19/19 06:18 Dose: 40 mg Documented by: Nicotine (Nicoderm 21 Mg/24 Hr Transderm Patch) 1 each TD DAILY M[facility] Stop: 06/18/19 13:59 Oxcarbazepine (Trileptal 150 Mg Tablet) 150 mg PO Q12 [facility] Stop: 06/18/19 10:59 Last Admin: 05/19/19 10:14 Dose: 150 mg Documented by: Pharmacy Profile Note (Medication Communication Order) 1 each MC .NOTICE NR Stop: 06/16/19 23:44 Sodium Chloride (Saline Flush 2.5 Ml Monoject Prefil Syrin) 2.5 ml IV Q8 [facility] Stop: 06/17/19 05:59 Last Admin: 05/19/19 06:16 Dose: 2.5 ml Documented by: - Allergies Allergies/Adverse Reactions: Penicillins Allergy (Severe, Verified 06/05/13 12:15) Tetanus Vaccines and Toxoid [Tetanus] Allergy (Severe, Verified 06/05/13 12:15) lorazepam [From Ativan] Allergy (Verified 05/18/19 05:14) Delirium - Diet/Activity Discharge Diet: Other (Comments) - NPO Discharge Activity: Bedrest Hospital Course Hospital Course: Patient admitted for exacerbation of COPD with evidence of acute inflammatory response not borne out by any active infection. She was started on IV steroids and routine cardiac evaluation for acute respiratory failure. On bedside evaluation using basic critical care ultrasound a decreased ejection fraction was found and a more formal echo confirmed a low ejection fraction. There were septal dyskinesis changes. Letter it was elucidated from the patient when she was more awake that she had had a history of cardiomyopathy. We also discovered that she had had a cardiac cath in 2012 but did not have stents. She had a mild troponin elevation to above 1 which decreased quickly. She did have initial tachycardia on presentation which has resolved. She has significant anxiety disorder and had to be maintained on both propofol and Precedex. This was helpful in maintaining a heart rate less than 100. On 05.17.19: Note in the morning she was noted to have T wave inversion in all leads. Questionable for ischemia or pericarditis/myocarditis. She did not endorse chest pain. She does have chronic pain and chronic anxiety but this had not worsened. We had consulted cardiology who felt that the T wave in her presentation may be consistent with new and STEMI. She is currently being considered for transfer for cardiac cath. She was started on heparin without bolus secondary to the use of prophylactic Lovenox. Other than the initial tachycardia she has remained hemodynamically stable. Her respiratory status had improved and she was being weaned at the time of consideration for transfer. She has been maintained on the ventilator to facil itate the possibility of cardiac catheterization without compromise of her respiratory system. A CT with contrast was done on presentation. There were no central pulmonary emboli and a noted hiatal hernia was unchanged. There was evidence of emphysema but no distinct consolidations. Physical Exam Vital Signs: Temp Pulse Resp BP Pulse Ox 98.4 F 78 17 105/71 99 05/19/19 12:00 05/19/19 12:00 05/19/19 13:17 05/19/19 13:17 05/19/19 13:17 Intake & Output 05/18/19 05/19/19 05/20/19 06:59 06:59 06:59 Intake Total 2065 438 Output Total 310 945 550 Balance 1755 -507 -550 Weight 60.8 kg 63.9 kg Exam: See progress notes. Results Laboratory Results: 05/19/19 04:17 05/19/19 04:17 05/19/19 05/19/19 05/19/19 04:17 04:17 04:44 WBC 5.6 RBC 3.98 Hgb 10.9 L Hct 33.0 L MCV 83 MCH 27.5 MCHC 33.1 RDW 14.2 H Plt Count 211 Seg Neutrophils % 82.2 H Carbonic Acid Cancelled HCO3/H2CO3 Ratio Cancelled ABG pH Cancelled ABG pCO2 Cancelled ABG pO2 Cancelled ABG HCO3 Cancelled ABG O2 Saturation Cancelled ABG Base Excess Cancelled FiO2 Cancelled Sodium 139.7 Potassium 3.7 Chloride 103 Carbon Dioxide 31 H Anion Gap 6 BUN 25 H Creatinine 0.62 Est GFR ( Amer) > 60 Glucose 124 H Calcium 8.7 Phosphorus 3.5 Magnesium 2.3 05/19/19 05:20 WBC RBC Hgb Hct MCV MCH MCHC RDW Plt Count Seg Neutrophils % Carbonic Acid 1.36 H HCO3/H2CO3 Ratio 21:1 ABG pH 7.43 ABG pCO2 45.1 H ABG pO2 79.7 L ABG HCO3 29.2 H ABG O2 Saturation 96.0 ABG Base Excess 4.3 FiO2 30% Sodium Potassium Chloride Carbon Dioxide Anion Gap BUN Creatinine Est GFR ( Amer) Glucose Calcium Phosphorus Magnesium 05/17/19 05/18/19 05/18/19 21:29 02:02 09:35 Troponin I 0.248 1.010 0.700 NT-Pro-B Natriuret Pep 05/19/19 05:12 Troponin I 0.115 NT-Pro-B Natriuret Pep 5080 H EKG Comments: T wave inversions all leads Impressions: Chest CT 05/18/19 00:00 IMPRESSION: Minimal parenchymal opacity superior segment of the right lower lobe. Scoliosis. Chest X-Ray 05/19/19 06:00 IMPRESSION: NO ACUTE RADIOGRAPHIC FINDING IN THE CHEST. SUPPORT DEVICE(S) IN EXPECTED LOCATIONS. Status: Image reviewed by me Plan Discharge Plan: Plans are underway for transfer to [facility] for cardiac cath evaluation. Has been accepted and will be air transported to CV ICU On heparin drip without bolus No aspirin given secondary to reactive airway disease Extreme anxiety questionably exacerbated by Steroids. Have added Valium. Time Spent: Greater than 30 Minutes
[2019-05-19 14:50] LABS: APPEARANCE,URINE CLEAR; BILIRUBIN,URINE NEGATIVE (NEGATIVE); COLOR,URINE YELLOW; GLUCOSE, URINE NEGATIVE (NEGATIVE); KETONES,URINE 20 mg/dL (NEGATIVE); LEUKOCYTE ESTERASE,URINE NEGATIVE (NEGATIVE); NITRITE,URINE NEGATIVE (NEGATIVE); PROTEIN,URINE NEGATIVE (NEGATIVE); URINE SPECIFIC GRAVITY 1.024; UROBILINOGEN,URINE NEGATIVE mg/dL (<2.0)
[2019-05-19 15:00] LABS: ARTERIAL BLOOD BASE EXCESS 3.2 mmol/L; ARTERIAL BLOOD FIO2 30%; ARTERIAL BLOOD H2CO3 1.27 mmol/L (1.05-1.35); ARTERIAL BLOOD HCO3 27.8 mmol/L (20-24); ARTERIAL BLOOD O2 SATURATION 97.4 % (94-98); ARTERIAL BLOOD PCO2 42.3 mmHg (35-45); ARTERIAL BLOOD PH 7.44 (7.35-7.45); ARTERIAL BLOOD PO2 94.1 mmHg (80-100); ARTERIAL BLOOD TOTAL CO2 29.1 mmol/L (21-25)
--- NOTE | 2019-05-19 15:54 | PDOC CONSULTATION ---
Consultation-Blank Consultation: CARDIOLOGY CONSULTATION: BY Dr. Caroline Lozano on 05/19/2019. Patient seen at 1:30 PM. 60 minutes spent with patient more than 50% of time spent in direct patient care. Note even though if the patient is intubated. She answers questions appropriately by shaking her head and also by writing on a piece of paper. Also history obtained from patient's and daughter. REASON FOR CONSULTATION: Patient with new subendocardial T wave inversion diffusely and elevated troponin I. CONSULT REQUESTING PHYSICIAN: Dr. Jason Escalera cigarette inspector. HISTORY OF PRESENT ILLNESS: Patient is a 58-year-old female with known history of COPD, who continues to smoke. Admitted with acute respiratory fa ilure due to acute exacerbation of COPD and also the CAT scan showing a faint right upper lobe infiltrate suggestive of pneumonia. The patient also had an echocardiogram which showed LV ejection fraction to be moderately reduced at 35%. She also has right ventricle systolic pressure of at least 48 mmHg which is moderate pulmonary hypertension. The patient's troponin I has been elevated with a peak troponin of 1.01 and the. Troponin is trending down but the patient is EKG today shows subendocardial diffuse T wave inversion consistent with subendocardial ischemia/subendocardial myocardial infarction/non-ST relation IA. The patient denies any chest pain or discomfort. As per the patient and patient's daughter she had a cardiac catheterization 2012 after IA which they say was caused by medication. Cardiac catheterization at that time did not show any revascularizable pulmonary lesions. As the daughter states that the patient has been known to have cardiomyopathy, but the ejection fraction is unknown to them. The patient was found to be in sinus tachycardia yesterday, but there was no significant atrial or ventricular arrhythmias seen. On repeated questioning patient denies any chest pain. She has no shortness of breath on the ventilator. She has no history of diabetes mellitus. No history of TIA CVA. Past Medical History: Performed from medical record review, as well as from the patient who responds as mentioned earlier, and also from the patient's and the patient's daughter. Cardiac Medical History: Reports: Myocardial Infarction - not certain if 20 1 3 in chart review; drug-induced etiology. She states cardiac catheterization at that time did not show any lesions that needed any revascularization. Denies: Hypertension Pulmonary Medical History: Reports: Asthma, Chronic Obstructive Pulmonary Disease (COPD), Intubation Denies: Tuberculosis Neurological Medical History: Reports: Seizures - RX DRUG RELATED FROM Klonopin/1 EPISODE 4-5 YRS AGO, Other - chronic pain Endocrine Medical History: Reports: None Denies: Hypothyroidism Renal/ Medical History: Reports: Other - urinary retention during admission with perf diverticulitis Denies: Chronic Kidney Disease GI Medical History: Reports: Diverticulitis - perforated resulting in remote (likely resection) and LLQ colostomy Denies: Hepatitis, Hiatal Hernia Psychiatric Medical History: Reports: Bipolar Disorder, Depression, General Anxiety Disorder, Substance Abuse, Tobacco Dependency Traumatic Medical History: Reports: None Hematology: Denies: Anemia, Sickle Cell Disease Infectious Medical History: Reports: None Past Surgical History Past Surgical History: Reports: Orthopedic Surgery - Partial R hip replacement, Other - perforated diver with likely left colon resection and colostomy placement. Cardiac catheterization Social/Family History - Social History Lives with: Alone - Not entirely for certain Smoking Status: Current Every Day Smoker Frequency of Alcohol Use: None Hx Recreational Drug Use: Yes Drugs: Marijuana Hx Prescription Drug Abuse: No - Family History Family History: Other -denies hypertension or CAD. RESUSCITATION STATUS: The patient is full code. The patient's and the patient's daughter are surrogate healthcare decision makers - Medication/Allergies Home Medications: Albuterol Sulfate [Albuterol Sulfate Hfa] 1 - 2 puff IH Q4 PRN 12/09/13 Tiotropium [place] [Spiriva Handihaler 18 mcg/dose (30 Dose)] 1 cap IH DAILY 12/09/13 Aripiprazole [Abilify 2 mg Tablet] 2 mg PO DAILY 12/11/14 Duloxetine HCl [Cymbalta 20 Mg Capsule.Dr] 20 mg PO DAILY 12/11/14 Budesonide/Formoterol Fumarate [Symbicort HFA 160-4.5 mcg Inhaler 6 gm] 1 puff IN BID 06/15/15 Mirtazapine [Remeron] 45 mg PO DAILY 06/15/15 Oxcarbazepine [Trileptal 150 mg Tablet] 1 tab PO BID 06/15/15 Simvastatin [Zocor 10 mg Tablet] 1 tab PO DAILY 06/15/15 Prednisone [Deltasone 20 mg Tablet] 3 tab PO DAILY 4 Days #12 tablet 05/16/19 Allergies/Adverse Reactions: Penicillins Allergy (Severe, Verified 06/05/13 12:15) Tetanus Vaccines and Toxoid [Tetanus] Allergy (Severe, Verified 06/05/13 12:15) lorazepam [From Ativan] Allergy (Verified 05/18/19 05:14) Delirium Review of Systems: Is limited due to patient being intubated. She denies any chills or Reiger's. She denies any headaches. In spite of being intubated she seems to be oriented x3 and answers questions appropriately with nodding her head and also by writing on a paper. She denies any chest pain discomfort. There is no shortness of breath. The patient denies any palpitations.. On the ventilator she is not short of breath. As per the daughter the patient does have a history of cardiomyopathy, ejection fraction not known to them, but no prior history of congestive heart failure. No anginal symptoms. Current Medications Albuterol (Ventolin 0.083% Neb 2.5 Mg/3 Ml Ampul) 2.5 mg NEB RTQ1HP PRN PRN Reason: cough/wheezing Stop: 06/18/19 12:49 Albuterol/Ipratropium (Duoneb 3 Ml Ampul) 3 ml NEB RTQ6 MARY Last Admin: 05/19/19 15:03 Dose: 3 ml Documented by: Clonazepam (Klonopin 1 Mg Tablet) 0.5 mg PO Q12 MARY Stop: 05/26/19 10:59 Last Admin: 05/19/19 10:13 Dose: 0.5 mg Documented by: Duloxetine HCl (Cymbalta 30 Mg Capsule.) 60 mg PO Q12 [facility] Stop: 06/18/19 10:59 Last Admin: 05/19/19 10:20 Dose: Not Given Documented by: Famotidine (Pepcid Inj/Pf 20 Mg/2 Ml Sdv) 20 mg IV Q12 [facility] Stop: 06/17/19 09:59 Last Admin: 05/19/19 10:13 Dose: 20 mg Documented by: Heparin Sodium (Porcine) (Heparin Inj 1,000 Unit/Ml 10 Ml Vial) 0 - 12,000 unit IV .BOLUS PER PROTOCOL PRN; Protocol PRN Reason: RESPOND TO aPTT VALUE Stop: 06/18/19 16:46 Propofol (Diprivan Rtu 1000 Mg/100 Ml Inf.Bottle) 1,000 mg in 100 mls @ 1.881 mls/hr IV CONTINUOUS PRN; Protocol PRN Reason: THIS MED IS NOT "PRN" Stop: 06/16/19 23:31 Last Admin: 05/19/19 15:18 Dose: 20 mcg/kg/min, 7.52 mls/hr Documented by: Dexmedetomidine/Sodium Chloride (Precedex 400 Mcg/Ns 100 Ml Iv Premix) 400 mcg in 100 mls @ 6.08 mls/hr IV CONTINUOUS PRN; Protocol PRN Reason: THIS MED IS NOT "PRN" Stop: 06/17/19 16:17 Last Admin: 05/19/19 15:36 Dose: 1.1 mcg/kg/hr, 16.72 mls/hr Documented by: Heparin Sodium/Dextrose (Heparin Rtu 25,000 Unit/250 Ml D5w Premix) 25,000 unit in 250 mls @ 0 mls/hr IV CONTINUOUS PRN; Protocol PRN Reason: THIS MED IS NOT "PRN" Stop: 06/18/19 13:46 Last Admin: 05/19/19 14:49 Dose: 12 unit/kg/hr, 7.67 mls/hr Documented by: Lurasidone HCl (Latuda 40 Mg Tablet) 40 mg PO DAILY [facility] Stop: 06/18/19 10:59 Last Admin: 05/19/19 10:13 Dose: 40 mg Documented by: Methylprednisolone Sodium Succinate (Solu-Medrol Inj/Pf 40 Mg/1 Ml Sdv) 40 mg IV Q12A MARY Stop: 06/17/19 17:59 Last Admin: 05/19/19 06:18 Dose: 40 mg Documented by: Nicotine (Nicoderm 21 Mg/24 Hr Transderm Patch) 1 each TD DAILY MARY Stop: 06/18/19 13:59 Last Admin: 05/19/19 14:07 Dose: 1 each Documented by: Oxcarbazepine (Trileptal 150 Mg Tablet) 150 mg PO Q12 [facility] Stop: 06/18/19 10:59 Last Admin: 05/19/19 10:14 Dose: 150 mg Documented by: Pharmacy Profile Note (Medication Communication Order) 1 each MC .NOTICE NR Stop: 06/16/19 23:44 Sodium Chloride (Saline Flush 2.5 Ml Monoject Prefil Syrin) 2.5 ml IV Q8 [facility] Stop: 06/17/19 05:59 Last Admin: 05/19/19 14:08 Dose: Not Given Documented by: Discontinued Medications Albuterol (Ventolin 0.083% Neb 2.5 Mg/3 Ml Ampul) 2.5 mg NEB RTQ6HP PRN PRN Reason: cough/wheezing Stop: 06/18/19 09:49 Albuterol/Ipratropium (Duoneb 3 Ml Ampul) 3 ml NEB RTQ6 MARY Stop: 06/17/19 23:37 Albuterol/Ipratropium (Duoneb 3 Ml Ampul) 3 ml NEB RTQ4 MARY Stop: 06/17/19 00:00 Last Admin: 05/18/19 00:41 Dose: 3 ml Documented by: Alprazolam (Xanax 0.5 Mg Tablet) 0.5 mg NG ONCE ONE Stop: 05/19/19 01:46 Last Admin: 05/19/19 02:09 Dose: 0.5 mg Documented by: Dextrose (Dextrose Inj 50% Syringe (25 Gm/50 Ml)) 12.5 gm IV PRN PRN; Protocol PRN Reason: FOR BG 50-69 IN ALERT PATIENT Stop: 06/17/19 00:40 Dextrose (Dextrose Inj 50% Syringe (25 Gm/50 Ml)) 25 gm IV PRN PRN; Protocol PRN Reason: PER PROTOCOL Stop: 06/17/19 00:40 Diazepam (Valium Inj 10 Mg/2 Ml Disp.Syrin) 5 mg IV NOW ONE Stop: 05/19/19 01:29 Last Admin: 05/19/19 01:55 Dose: 5 mg Documented by: Diazepam (Valium Inj 10 Mg/2 Ml Disp.Syrin) Confirm Administered Dose 10 mg .ROUTE .STK-MED ONE Stop: 05/19/19 01:52 Last Admin: 05/19/19 02:10 Dose: Not Given Documented by: Diazepam (Valium Inj 10 Mg/2 Ml Disp.Syrin) 5 mg IV NOW ONE Stop: 05/19/19 10:31 Last Admin: 05/19/19 10:13 Dose: 5 mg Documented by: Diazepam (Valium Inj 10 Mg/2 Ml Disp.Syrin) 5 mg IV NOW ONE Stop: 05/19/19 15:16 Last Admin: 05/19/19 14:56 Dose: 5 mg Documented by: Enoxaparin Sodium (Lovenox Inj 40 Mg/0.4 Ml Disp.Syrin) 40 mg SUBCUT DAILY MARY Stop: 06/17/19 09:59 Last Admin: 05/19/19 10:14 Dose: 40 mg Documented by: Famotidine (Pepcid Inj/Pf 20 Mg/2 Ml Sdv) 20 mg IV NOW ONE Stop: 05/18/19 00:31 Last Admin: 05/18/19 00:39 Dose: 20 mg Documented by: Glucagon (Glucagen Inj 1 Mg Vial) 1 mg IM PRN PRN; Protocol PRN Reason: Evaluate for BG < 70 Stop: 06/17/19 00:40 Glucose (Glutose 40% Gel 15 Gm Tube) 15 gm PO PRN PRN; Protocol PRN Reason: FOR BG 50-69 IN ALERT PATIENT Stop: 06/17/19 00:40 Glucose (Glutose 40% Gel 15 Gm Tube) 30 gm PO PRN PRN; Protocol PRN Reason: FOR BG < 50 IN ALERT PATIENT Stop: 06/17/19 00:40 Hydromorphone HCl (Dilaudid Inj/Pf 2 Mg/Ml Ampule) 1 mg IV NOW ONE Stop: 05/17/19 21:41 Last Admin: 05/17/19 22:13 Dose: 1 mg Documented by: Sodium Chloride (Nacl 0.9% 1000 Ml Iv Soln) 1,000 mls @ 0 mls/hr IV BOLUS ONE Stop: 05/17/19 22:24 Last Admin: 05/18/19 00:36 Dose: Not Given Documented by: Lactated Ringer's (Lactated Ringers 1000 Ml Iv Soln) 1,000 mls @ 0 mls/hr IV BOLUS ONE Stop: 05/18/19 23:33 Last Admin: 05/18/19 23:00 Dose: Not Given Documented by: Lactated Ringer's (Lactated Ringers 1000 Ml Iv Soln) 1,000 mls @ 100 mls/hr IV CONTINUOUS PRN PRN Reason: THIS MED IS NOT "PRN" Stop: 06/17/19 01:12 Last Infusion: 05/18/19 05:11 Dose: Infused Documented by: Lactated Ringer's (Lactated Ringers 1000 Ml Iv Soln) 1,000 mls @ 0 mls/hr IV BOLUS ONE Stop: 05/18/19 01:36 Last Infusion: 05/18/19 01:57 Dose: Infused Documented by: Cefepime HCl (Maxipime Rtu 2 Gm-D5w 50 Ml Premix Bag) 2 gm in 50 mls @ 100 mls/hr IV Q8A [facility] Stop: 05/25/19 09:59 Cefepime HCl (Maxipime Rtu 2 Gm-D5w 50 Ml Premix Bag) 2 gm in 50 mls @ 100 mls/hr IV NOW ONE Stop: 05/18/19 02:59 Last Infusion: 05/18/19 05:11 Dose: Infused Documented by: Cefepime HCl (Maxipime Rtu 2 Gm-D5w 50 Ml Premix Bag) Confirm Administered Dose 2 gm in 50 mls @ ud IV .STK-MED ONE Stop: 05/18/19 03:56 Last Admin: 05/18/19 04:32 Dose: Not Given Documented by: Lactated Ringer's (Lactated Ringers 1000 Ml Iv Soln) 1,000 mls @ 150 mls/hr IV CONTINUOUS PRN PRN Reason: THIS MED IS NOT "PRN" Stop: 06/17/19 01:12 Last Admin: 05/18/19 04:30 Dose: 150 mls/hr Documented by: Cefepime HCl 2 gm/ Dextrose 50 mls @ 100 mls/hr IV Q8 [facility] Stop: 05/25/19 13:59 Last Admin: 05/18/19 13:17 Dose: 100 ml/hr, 100 mls/hr Documented by: Lactated Ringer's (Lactated Ringers 1000 Ml Iv Soln) 1,000 mls @ 75 mls/hr IV CONTINUOUS PRN PRN Reason: THIS MED IS NOT "PRN" Stop: 06/17/19 01:12 Last Admin: 05/18/19 09:14 Dose: 75 mls/hr Documented by: Ceftriaxone Sodium/Dextrose (Rocephin Rtu 2 Gm/D5w 50 Ml Premix Bag) 2 gm in 50 mls @ 100 mls/hr IV DAILY@1999 [facility] Stop: 05/25/19 19:59 Last Admin: 05/18/19 19:37 Dose: 100 mls/hr, 100 mls/hr Documented by: Dexmedetomidine/Sodium Chloride (Precedex 400 Mcg/Ns 100 Ml Iv Premix) Confirm Administered Dose 400 mcg in 100 mls @ ud IV .STK-MED ONE Stop: 05/18/19 16:09 Last Admin: 05/18/19 16:42 Dose: Not Given Documented by: Lactated Ringer's (Lactated Ringers 1000 Ml Iv Soln) 250 mls @ 0 mls/hr IV BOLUS ONE Stop: 05/19/19 06:05 Last Admin: 05/19/19 06:10 Dose: 999 mls/hr Documented by: Lactated Ringer's (Lactated Ringers 1000 Ml Iv Soln) 250 mls @ 0 mls/hr IV BOLUS ONE Stop: 05/19/19 06:21 Magnesium Sulfate/Dextrose (Magnesium Sulfate Rtu-D5w 1 Gm/100 Ml Premix) 1 gm in 100 mls @ 100 mls/hr IV Q1H MARY Stop: 05/19/19 15:14 Last Admin: 05/19/19 15:19 Dose: 100 ml/hr, 100 mls/hr Documented by: Influenza Virus Vaccine Quadrival (Flulaval Quad Vac 0.5 Ml Syr) 0.5 ml IM .ONCE ONE Stop: 05/18/19 04:11 Last Admin: 05/19/19 14:57 Dose: Not Given Documented by: Insulin Human Regular (Humulin R (Pyxis) Insulin 100 Unit/Ml 3ml) 0 - 12 unit SUBCUT Q6 [facility]; Protocol Stop: 06/17/19 05:59 Last Admin: 05/19/19 06:14 Dose: Not Given Documented by: Insulin Human Regular (Humulin R (Pyxis) Insulin 100 Unit/Ml 3ml) 0 - 12 unit SUBCUT NOW ONE; Protocol Stop: 05/18/19 00:46 Last Admin: 05/18/19 01:20 Dose: Not Given Documented by: Lorazepam (Ativan Inj 2 Mg/1 Ml Vial) 1 mg IV NOW ONE Stop: 05/19/19 10:16 Methylprednisolone Sodium Succinate (Solu-Medrol Inj/Pf 40 Mg/1 Ml Sdv) 40 mg I V Q8 MARY Stop: 06/17/19 05:59 Last Admin: 05/18/19 05:37 Dose: 40 mg Documented by: Mirtazapine (Remeron 15 Mg Tablet) 22.5 mg PO QHS MARY Stop: 06/18/19 21:59 Vecuronium [place] (Norcuron Inj 10 Mg Vial) 10 mg IV NOW ONE Stop: 05/17/19 21:40 Last Admin: 05/17/19 22:13 Dose: 10 mg Documented by: The patient is on full dose heparin drip. PHYSICAL EXAMINATION: The patient is a frail build, in no acute distress. She is intubated, but seems to be awake and oriented x3. Selected Entries 05/19/19 05/19/19 05/19/19 13:16 13:17 13:47 Core 98.2 F 98.2 F Temperature Heart Rate ( 73 85 Monitors) Respiratory 17 16 Rate Blood Pressure 105/71 119/78 Blood Pressure 82 91 Mean O2 Sat by Pulse 99 99 Oximetry Oxygen Delivery Method ( includes room air) Fraction of Inspired Oxygen (FIO2) End-Tidal CO2 33 Concentration 05/19/19 14:00 Core Temperature Heart Rate ( Monitors) Respiratory Rate Blood Pressure Blood Pressure Mean O2 Sat by Pulse 99 Oximetry Oxygen Delivery Mechanical Method ( Ventilator includes room air) Fraction of 30 Inspired Oxygen (FIO2) End-Tidal CO2 Concentration HEAD: Is atraumatic normocephalic. EYES: Pupils are equal round regular reactive to light and accommodation. Extraocular movements are normal. There is no conjunctival pallor. There is no scleral icterus. ENT is negative. NECK: Supple. There is no JVD. Carotids are equal there is no bruit there is no lymphadenopathy. There is no goiter. There is no accessory muscle respiration use. She is not fighting the ventilator. Trachea central. There is no goiter. LUNGS: There is a few dry crackles right upper lobe. Otherwise there is diminished air entry throughout. On percussion there is hyperresonance. There is no rhonchi or wheezing or rales of CHF. HEART: S1-S2 is heard. Systolic murmur in the left sternal border and the apex. There is no aortic stenosis murmur. There is no aortic regurgitation murmur. There is no rub. There is no S3 or S4 gallop. ABDOMEN: Soft. Nontender. There is no hepatosplenomegaly. Bowel sounds are well heard. EXTREMITIES: Femorals are well felt. There is no femoral bruits. Leg pulses are well felt.. There is no pedal edema. There is no DVT or cellulitis. There is no cyanosis or clubbing. On palpation there is no calf tenderness. ILLNESS: The patient is conscious awake oriented x3. She is able to move all 4 extremities in spite of being in restraints. PSYCHIATRIC: In-depth psychiatric examination not done but the patient judgment insight seem to be intact. She answers questions appropriately. She does not appear to be anxious or depressed. Labs- Entire Visit 05/17/19 05/17/19 05/17/19 21:29 21:29 21:29 WBC 13.7 H RBC 4.88 Hgb 13.2 Hct 42.0 MCV 86 MCH 27.1 MCHC 31.4 L RDW 14.5 H Plt Count 396 Lymph % (Auto) 15.1 White % (Auto) 6.4 Eos % (Auto) 0.0 Baso % (Auto) 0.1 Absolute Neuts (auto) 10.7 H Absolute Lymphs (auto) 2.1 Absolute Monos (auto) 0.9 Absolute Eos (auto) 0.0 Absolute Basos (auto) 0.0 Total Counted Seg Neutrophils % 78.4 H Seg Neuts % (Manual) Lymphocytes % (Manual) Atypical Lymphs % Monocytes % (Manual) Eosinophils % (Manual) Basophils % (Manual) Abs Neuts (Manual) Abs Lymphs (Manual) Abs Monocytes (Manual) Absolute Eos (Manual) Abs Basophils (Manual) Toxic Granulation Platelet Comment Poikilocytosis Anisocytosis Tear Drop Cells Ovalocytes PT INR APTT Carbonic Acid HCO3/H2CO3 Ratio ABG pH ABG pCO2 ABG pO2 ABG HCO3 ABG Total CO2 ABG O2 Saturation ABG Base Excess FiO2 Sodium 141.8 Potassium 4.0 Chloride 98 Carbon Dioxide 30 Anion Gap 14 BUN 12 Creatinine 0.64 Est GFR ( Amer) > 60 Est GFR (MDRD) Non-Af > 60 Glucose 318 H POC Glucose Lactic Acid Calcium 9.3 Phosphorus Magnesium Total Bilirubin 0.3 Direct Bilirubin 0.2 Neonat Total Bilirubin Not Reportable Neonat Direct Bilirubin Not Reportable Neonat Indirect Bili Not Reportable AST 25 ALT 13 Alkaline Phosphatase 135 H Troponin I 0.248 C-Reactive Protein NT-Pro-B Natriuret Pep Total Protein 6.3 Albumin 3.6 TSH Free T4 Free T3 pg/mL Urine Color Urine Appearance Urine pH Ur Specific [place] Urine Protein Urine Glucose (UA) Urine Ketones Urine Blood Urine Nitrite Urine Nitrite (Reflex) Urine Bilirubin Urine Urobilinogen Ur Leukocyte Esterase Leukocyte Esterase Rfl Urine WBC (Auto) Urine RBC (Auto) U Hyaline Cast (Auto) Urine WBC (Reflex) Squamous Epi Cells Auto Urine Mucus (Auto) Urine Creatinine Urine Sodium Urine Ascorbic Acid Urine Opiates Screen Urine Methadone Screen Ur Barbiturates Screen Ur Phencyclidine Scrn Ur Amphetamines Screen U Benzodiazepines Scrn Urine Cocaine Screen U Marijuana (THC) Screen Influenza A (Rapid) Influenza B (Rapid) 05/17/19 05/17/19 05/17/19 21:29 21:40 22:04 WBC RBC Hgb Hct MCV MCH MCHC RDW Plt Count Lymph % (Auto) White % (Auto) Eos % (Auto) Baso % (Auto) Absolute Neuts (auto) Absolute Lymphs (auto) Absolute Monos (auto) Absolute Eos (auto) Absolute Basos (auto) Total Counted Seg Neutrophils % Seg Neuts % (Manual) Lymphocytes % (Manual) Atypical Lymphs % Monocytes % (Manual) Eosinophils % (Manual) Basophils % (Manual) Abs Neuts (Manual) Abs Lymphs (Manual) Abs Monocytes (Manual) Absolute Eos (Manual) Abs Basophils (Manual) Toxic Granulation Platelet Comment Poikilocytosis Anisocytosis Tear Drop Cells Ovalocytes PT INR APTT Carbonic Acid 2.43 H HCO3/H2CO3 Ratio 11:1 ABG pH 7.15 L* ABG pCO2 80.8 H* ABG pO2 161.1 H ABG HCO3 27.3 H ABG Total CO2 29.8 H ABG O2 Saturation 98.4 H ABG Base Excess -3.7 FiO2 40% Sodium Potassium Chloride Carbon Dioxide Anion Gap BUN Creatinine Est GFR ( Amer) Est GFR (MDRD) Non-Af Glucose POC Glucose Lactic Acid 3.6 H Calcium Phosphorus Magnesium Total Bilirubin Direct Bilirubin Neonat Total Bilirubin Neonat Direct Bilirubin Neonat Indirect Bili AST ALT Alkaline Phosphatase Troponin I C-Reactive Protein NT-Pro-B Natriuret Pep Total Protein Albumin TSH Free T4 Free T3 pg/mL Urine Color Urine Appearance Urine pH Ur Specific [place] Urine Protein Urine Glucose (UA) Urine Ketones Urine Blood Urine Nitrite Urine Nitrite (Reflex) Urine Bilirubin Urine Urobilinogen Ur Leukocyte Esterase Leukocyte Esterase Rfl Urine WBC (Auto) Urine RBC (Auto) U Hyaline Cast (Auto) Urine WBC (Reflex) Squamous Epi Cells Auto Urine Mucus (Auto) Urine Creatinine Urine Sodium Urine Ascorbic Acid Urine Opiates Screen Urine Methadone Screen Ur Barbiturates Screen Ur Phencyclidine Scrn Ur Amphetamines Screen U Benzodiazepines Scrn Urine Cocaine Screen U Marijuana (THC) Screen Influenza A (Rapid) NEGATIVE Influenza B (Rapid) NEGATIVE 05/18/19 05/18/19 05/18/19 00:45 00:45 00:45 WBC RBC Hgb Hct MCV MCH MCHC RDW Plt Count Lymph % (Auto) White % (Auto) Eos % (Auto) Baso % (Auto) Absolute Neuts (auto) Absolute Lymphs (auto) Absolute Monos (auto) Absolute Eos (auto) Absolute Basos (auto) Total Counted Seg Neutrophils % Seg Neuts % (Manual) Lymphocytes % (Manual) Atypical Lymphs % Monocytes % (Manual) Eosinophils % (Manual) Basophils % (Manual) Abs Neuts (Manual) Abs Lymphs (Manual) Abs Monocytes (Manual) Absolute Eos (Manual) Abs Basophils (Manual) Toxic Granulation Platelet Comment Poikilocytosis Anisocytosis Tear Drop Cells Ovalocytes PT INR APTT Carbonic Acid 1.88 H HCO3/H2CO3 Ratio 15:1 ABG pH 7.28 L ABG pCO2 62.6 H ABG pO2 112.0 H ABG HCO3 29.0 H ABG Total CO2 30.9 H ABG O2 Saturation 97.5 ABG Base Excess 0.8 FiO2 40% Sodium Potassium Chloride Carbon Dioxide Anion Gap BUN Creatinine Est GFR ( Amer) Est GFR (MDRD) Non-Af Glucose POC Glucose Lactic Acid Calcium Phosphorus Magnesium Total Bilirubin Direct Bilirubin Neonat Total Bilirubin Neonat Direct Bilirubin Neonat Indirect Bili AST ALT Alkaline Phosphatase Troponin I C-Reactive Protein NT-Pro-B Natriuret Pep Total Protein Albumin TSH Free T4 Free T3 pg/mL Urine Color YELLOW Urine Appearance SLIGHTLY-CLOUDY Urine pH 6.0 Ur Specific [place] 1.012 Urine Protein 100 H Urine Glucose (UA) 50 H Urine Ketones NEGATIVE Urine Blood SMALL H Urine Nitrite Urine Nitrite (Reflex) NEGATIVE Urine Bilirubin NEGATIVE Urine Urobilinogen NEGATIVE Ur Leukocyte Esterase Leukocyte Esterase Rfl NEGATIVE Urine WBC (Auto) Urine RBC (Auto) 2 U Hyaline Cast (Auto) 8 Urine WBC (Reflex) 5 Squamous Epi Cells Auto <1 Urine Mucus (Auto) RARE Urine Creatinine Urine Sodium Urine Ascorbic Acid NEGATIVE Urine Opiates Screen UNCONFIRMED POSITIVE Urine Methadone Screen NEGATIVE Ur Barbiturates Screen NEGATIVE Ur Phencyclidine Scrn NEGATIVE Ur Amphetamines Screen NEGATIVE U Benzodiazepines Scrn NEGATIVE Urine Cocaine Screen NEGATIVE U Marijuana (THC) Screen NEGATIVE Influenza A (Rapid) Influenza B (Rapid) 05/18/19 05/18/19 05/18/19 01:20 02:02 02:02 WBC 14.4 H RBC 4.57 Hgb 12.4 Hct 38.3 MCV 84 MCH 27.2 MCHC 32.5 RDW 14.2 H Plt Count 257 Lymph % (Auto) Not Reportable White % (Auto) Not Reportable Eos % (Auto) Not Reportable Baso % (Auto) Not Reportable Absolute Neuts (auto) Not Reportable Absolute Lymphs (auto) Not Reportable Absolute Monos (auto) Not Reportable Absolute Eos (auto) Not Reportable Absolute Basos (auto) Not Reportable Total Counted 100 Seg Neutrophils % Not Reportable Seg Neuts % (Manual) 88 H Lymphocytes % (Manual) 6 L Atypical Lymphs % 1 Monocytes % (Manual) 5 Eosinophils % (Manual) 0 Basophils % (Manual) 0 Abs Neuts (Manual) 12.7 H Abs Lymphs (Manual) 1.0 Abs Monocytes (Manual) 0.7 Absolute Eos (Manual) 0.0 Abs Basophils (Manual) 0.0 Toxic Granulation SLIGHT Platelet Comment ADEQUATE Poikilocytosis SLIGHT Anisocytosis SLIGHT Tear Drop Cells SLIGHT Ovalocytes SLIGHT PT INR APTT Carbonic Acid HCO3/H2CO3 Ratio ABG pH ABG pCO2 ABG pO2 ABG HCO3 ABG Total CO2 ABG O2 Saturation ABG Base Excess FiO2 Sodium 143.2 Potassium 4.4 Chloride 105 Carbon Dioxide 29 Anion Gap 9 BUN 15 Creatinine 0.81 Est GFR ( Amer) > 60 Est GFR (MDRD) Non-Af > 60 Glucose 139 H POC Glucose 139 H Lactic Acid Calcium 9.2 Phosphorus 5.0 H Magnesium 2.8 H Total Bilirubin Direct Bilirubin Neonat Total Bilirubin Neonat Direct Bilirubin Neonat Indirect Bili AST ALT Alkaline Phosphatase Troponin I C-Reactive Protein NT-Pro-B Natriuret Pep Total Protein Albumin TSH Free T4 Free T3 pg/mL Urine Color Urine Appearance Urine pH Ur Specific [place] Urine Protein Urine Glucose (UA) Urine Ketones Urine Blood Urine Nitrite Urine Nitrite (Reflex) Urine Bilirubin Urine Urobilinogen Ur Leukocyte Esterase Leukocyte Esterase Rfl Urine WBC (Auto) Urine RBC (Auto) U Hyaline Cast (Auto) Urine WBC (Reflex) Squamous Epi Cells Auto Urine Mucus (Auto) Urine Creatinine Urine Sodium Urine Ascorbic Acid Urine Opiates Screen Urine Methadone Screen Ur Barbiturates Screen Ur Phencyclidine Scrn Ur Amphetamines Screen U Benzodiazepines Scrn Urine Cocaine Screen U Marijuana (THC) Screen Influenza A (Rapid) Influenza B (Rapid) 05/18/19 05/18/19 05/18/19 02:02 02:02 02:02 WBC RBC Hgb Hct MCV MCH MCHC RDW Plt Count Lymph % (Auto) White % (Auto) Eos % (Auto) Baso % (Auto) Absolute Neuts (auto) Absolute Lymphs (auto) Absolute Monos (auto) Absolute Eos (auto) Absolute Basos (auto) Total Counted Seg Neutrophils % Seg Neuts % (Manual) Lymphocytes % (Manual) Atypical Lymphs % Monocytes % (Manual) Eosinophils % (Manual) Basophils % (Manual) Abs Neuts (Manual) Abs Lymphs (Manual) Abs Monocytes (Manual) Absolute Eos (Manual) Abs Basophils (Manual) Toxic Granulation Platelet Comment Poikilocytosis Anisocytosis Tear Drop Cells Ovalocytes PT INR APTT Carbonic Acid HCO3/H2CO3 Ratio ABG pH ABG pCO2 ABG pO2 ABG HCO3 ABG Total CO2 ABG O2 Saturation ABG Base Excess FiO2 Sodium Potassium Chloride Carbon Dioxide Anion Gap BUN Creatinine Est GFR ( Amer) Est GFR (MDRD) Non-Af Glucose POC Glucose Lactic Acid 2.9 H Calcium Phosphorus Magnesium Total Bilirubin Direct Bilirubin Neonat Total Bilirubin Neonat Direct Bilirubin Neonat Indirect Bili AST ALT Alkaline Phosphatase Troponin I 1.010 C-Reactive Protein 48.9 H NT-Pro-B Natriuret Pep Total Protein Albumin TSH Free T4 Free T3 pg/mL Urine Color Urine Appearance Urine pH Ur Specific [place] Urine Protein Urine Glucose (UA) Urine Ketones Urine Blood Urine Nitrite Urine Nitrite (Reflex) Urine Bilirubin Urine Urobilinogen Ur Leukocyte Esterase Leukocyte Esterase Rfl Urine WBC (Auto) Urine RBC (Auto) U Hyaline Cast (Auto) Urine WBC (Reflex) Squamous Epi Cells Auto Urine Mucus (Auto) Urine Creatinine Urine Sodium Urine Ascorbic Acid Urine Opiates Screen Urine Methadone Screen Ur Barbiturates Screen Ur Phencyclidine Scrn Ur Amphetamines Screen U Benzodiazepines Scrn Urine Cocaine Screen U Marijuana (THC) Screen Influenza A (Rapid) Influenza B (Rapid) 05/18/19 05/18/19 05/18/19 04:47 05:21 09:35 WBC RBC Hgb Hct MCV MCH MCHC RDW Plt Count Lymph % (Auto) White % (Auto) Eos % (Auto) Baso % (Auto) Absolute Neuts (auto) Absolute Lymphs (auto) Absolute Monos (auto) Absolute Eos (auto) Absolute Basos (auto) Total Counted Seg Neutrophils % Seg Neuts % (Manual) Lymphocytes % (Manual) Atypical Lymphs % Monocytes % (Manual) Eosinophils % (Manual) Basophils % (Manual) Abs Neuts (Manual) Abs Lymphs (Manual) Abs Monocytes (Manual) Absolute Eos (Manual) Abs Basophils (Manual) Toxic Granulation Platelet Comment Poikilocytosis Anisocytosis Tear Drop Cells Ovalocytes PT INR APTT Carbonic Acid 1.34 HCO3/H2CO3 Ratio 21:1 ABG pH 7.43 ABG pCO2 44.4 ABG pO2 96.8 ABG HCO3 29.1 H ABG Total CO2 30.4 H ABG O2 Saturation 97.5 ABG Base Excess 4.3 FiO2 30% Sodium Potassium Chloride Carbon Dioxide Anion Gap BUN Creatinine Est GFR ( Amer) Est GFR (MDRD) Non-Af Glucose POC Glucose 133 H Lactic Acid Calcium Phosphorus Magnesium Total Bilirubin Direct Bilirubin Neonat Total Bilirubin Neonat Direct Bilirubin Neonat Indirect Bili AST ALT Alkaline Phosphatase Troponin I 0.700 C-Reactive Protein NT-Pro-B Natriuret Pep Total Protein Albumin TSH Free T4 Free T3 pg/mL Urine Color Urine Appearance Urine pH Ur Specific [place] Urine Protein Urine Glucose (UA) Urine Ketones Urine Blood Urine Nitrite Urine Nitrite (Reflex) Urine Bilirubin Urine Urobilinogen Ur Leukocyte Esterase Leukocyte Esterase Rfl Urine WBC (Auto) Urine RBC (Auto) U Hyaline Cast (Auto) Urine WBC (Reflex) Squamous Epi Cells Auto Urine Mucus (Auto) Urine Creatinine Urine Sodium Urine Ascorbic Acid Urine Opiates Screen Urine Methadone Screen Ur Barbiturates Screen Ur Phencyclidine Scrn Ur Amphetamines Screen U Benzodiazepines Scrn Urine Cocaine Screen U Marijuana (THC) Screen Influenza A (Rapid) Influenza B (Rapid) 05/18/19 05/18/19 05/18/19 09:35 09:35 12:42 WBC RBC Hgb Hct MCV MCH MCHC RDW Plt Count Lymph % (Auto) White % (Auto) Eos % (Auto) Baso % (Auto) Absolute Neuts (auto) Absolute Lymphs (auto) Absolute Monos (auto) Absolute Eos (auto) Absolute Basos (auto) Total Counted Seg Neutrophils % Seg Neuts % (Manual) Lymphocytes % (Manual) Atypical Lymphs % Monocytes % (Manual) Eosinophils % (Manual) Basophils % (Manual) Abs Neuts (Manual) Abs Lymphs (Manual) Abs Monocytes (Manual) Absolute Eos (Manual) Abs Basophils (Manual) Toxic Granulation Platelet Comment Poikilocytosis Anisocytosis Tear Drop Cells Ovalocytes PT INR APTT Carbonic Acid HCO3/H2CO3 Ratio ABG pH ABG pCO2 ABG pO2 ABG HCO3 ABG Total CO2 ABG O2 Saturation ABG Base Excess FiO2 Sodium Potassium Chloride Carbon Dioxide Anion Gap BUN Creatinine Est GFR ( Amer) Est GFR (MDRD) Non-Af Glucose POC Glucose 109 Lactic Acid 2.1 Calcium Phosphorus Magnesium Total Bilirubin Direct Bilirubin Neonat Total Bilirubin Neonat Direct Bilirubin Neonat Indirect Bili AST ALT Alkaline Phosphatase Troponin I C-Reactive Protein NT-Pro-B Natriuret Pep Total Protein Albumin TSH 0.39 L Free T4 1.04 Free T3 pg/mL 2.41 L Urine Color Urine Appearance Urine pH Ur Specific [place] Urine Protein Urine Glucose (UA) Urine Ketones Urine Blood Urine Nitrite Urine Nitrite (Reflex) Urine Bilirubin Urine Urobilinogen Ur Leukocyte Esterase Leukocyte Esterase Rfl Urine WBC (Auto) Urine RBC (Auto) U Hyaline Cast (Auto) Urine WBC (Reflex) Squamous Epi Cells Auto Urine Mucus (Auto) Urine Creatinine Urine Sodium Urine Ascorbic Acid Urine Opiates Screen Urine Methadone Screen Ur Barbiturates Screen Ur Phencyclidine Scrn Ur Amphetamines Screen U Benzodiazepines Scrn Urine Cocaine Screen U Marijuana (THC) Screen Influenza A (Rapid) Influenza B (Rapid) 05/18/19 05/19/19 05/19/19 18:28 00:06 04:17 WBC 5.6 RBC 3.98 Hgb 10.9 L Hct 33.0 L MCV 83 MCH 27.5 MCHC 33.1 RDW 14.2 H Plt Count 211 Lymph % (Auto) 10.2 L White % (Auto) 7.5 Eos % (Auto) 0.0 Baso % (Auto) 0.1 Absolute Neuts (auto) 4.6 Absolute Lymphs (auto) 0.6 Absolute Monos (auto) 0.4 Absolute Eos (auto) 0.0 Absolute Basos (auto) 0.0 Total Counted Seg Neutrophils % 82.2 H Seg Neuts % (Manual) Lymphocytes % (Manual) Atypical Lymphs % Monocytes % (Manual) Eosinophils % (Manual) Basophils % (Manual) Abs Neuts (Manual) Abs Lymphs (Manual) Abs Monocytes (Manual) Absolute Eos (Manual) Abs Basophils (Manual) Toxic Granulation Platelet Comment Poikilocytosis Anisocytosis Tear Drop Cells Ovalocytes PT INR APTT Carbonic Acid HCO3/H2CO3 Ratio ABG pH ABG pCO2 ABG pO2 ABG HCO3 ABG Total CO2 ABG O2 Saturation ABG Base Excess FiO2 Sodium Potassium Chloride Carbon Dioxide Anion Gap BUN Creatinine Est GFR ( Amer) Est GFR (MDRD) Non-Af Glucose POC Glucose 107 133 H Lactic Acid Calcium Phosphorus Magnesium Total Bilirubin Direct Bilirubin Neonat Total Bilirubin Neonat Direct Bilirubin Neonat Indirect Bili AST ALT Alkaline Phosphatase Troponin I C-Reactive Protein NT-Pro-B Natriuret Pep Total Protein Albumin TSH Free T4 Free T3 pg/mL Urine Color Urine Appearance Urine pH Ur Specific [place] Urine Protein Urine Glucose (UA) Urine Ketones Urine Blood Urine Nitrite Urine Nitrite (Reflex) Urine Bilirubin Urine Urobilinogen Ur Leukocyte Esterase Leukocyte Esterase Rfl Urine WBC (Auto) Urine RBC (Auto) U Hyaline Cast (Auto) Urine WBC (Reflex) Squamous Epi Cells Auto Urine Mucus (Auto) Urine Creatinine Urine Sodium Urine Ascorbic Acid Urine Opiates Screen Urine Methadone Screen Ur Barbiturates Screen Ur Phencyclidine Scrn Ur Amphetamines Screen U Benzodiazepines Scrn Urine Cocaine Screen U Marijuana (THC) Screen Influenza A (Rapid) Influenza B (Rapid) 05/19/19 05/19/19 05/19/19 04:17 04:44 04:49 WBC RBC Hgb Hct MCV MCH MCHC RDW Plt Count Lymph % (Auto) White % (Auto) Eos % (Auto) Baso % (Auto) Absolute Neuts (auto) Absolute Lymphs (auto) Absolute Monos (auto) Absolute Eos (auto) Absolute Basos (auto) Total Counted Seg Neutrophils % Seg Neuts % (Manual) Lymphocytes % (Manual) Atypical Lymphs % Monocytes % (Manual) Eosinophils % (Manual) Basophils % (Manual) Abs Neuts (Manual) Abs Lymphs (Manual) Abs Monocytes (Manual) Absolute Eos (Manual) Abs Basophils (Manual) Toxic Granulation Platelet Comment Poikilocytosis Anisocytosis Tear Drop Cells Ovalocytes PT INR APTT Carbonic Acid Cancelled HCO3/H2CO3 Ratio Cancelled ABG pH Cancelled ABG pCO2 Cancelled ABG pO2 Cancelled ABG HCO3 Cancelled ABG Total CO2 Cancelled ABG O2 Saturation Cancelled ABG Base Excess Cancelled FiO2 Cancelled Sodium 139.7 Potassium 3.7 Chloride 103 Carbon Dioxide 31 H Anion Gap 6 BUN 25 H Creatinine 0.62 Est GFR ( Amer) > 60 Est GFR (MDRD) Non-Af > 60 Glucose 124 H POC Glucose Lactic Acid Calcium 8.7 Phosphorus 3.5 Magnesium 2.3 Total Bilirubin Direct Bilirubin Neonat Total Bilirubin Neonat Direct Bilirubin Neonat Indirect Bili AST ALT Alkaline Phosphatase Troponin I C-Reactive Protein NT-Pro-B Natriuret Pep Total Protein Albumin TSH Free T4 Free T3 pg/mL Urine Color Urine Appearance Urine pH Ur Specific [place] Urine Protein Urine Glucose (UA) Urine Ketones Urine Blood Urine Nitrite Urine Nitrite (Reflex) Urine Bilirubin Urine Urobilinogen Ur Leukocyte Esterase Leukocyte Esterase Rfl Urine WBC (Auto) Urine RBC (Auto) U Hyaline Cast (Auto) Urine WBC (Reflex) Squamous Epi Cells Auto Urine Mucus (Auto) Urine Creatinine 118.0 Urine Sodium 32 Urine Ascorbic Acid Urine Opiates Screen Urine Methadone Screen Ur Barbiturates Screen Ur Phencyclidine Scrn Ur Amphetamines Screen U Benzodiazepines Scrn Urine Cocaine Screen U Marijuana (THC) Screen Influenza A (Rapid) Influenza B (Rapid) 05/19/19 05/19/19 05/19/19 05:12 05:20 06:13 WBC RBC Hgb Hct MCV MCH MCHC RDW Plt Count Lymph % (Auto) White % (Auto) Eos % (Auto) Baso % (Auto) Absolute Neuts (auto) Absolute Lymphs (auto) Absolute Monos (auto) Absolute Eos (auto) Absolute Basos (auto) Total Counted Seg Neutrophils % Seg Neuts % (Manual) Lymphocytes % (Manual) Atypical Lymphs % Monocytes % (Manual) Eosinophils % (Manual) Basophils % (Manual) Abs Neuts (Manual) Abs Lymphs (Manual) Abs Monocytes (Manual) Absolute Eos (Manual) Abs Basophils (Manual) Toxic Granulation Platelet Comment Poikilocytosis Anisocytosis Tear Drop Cells Ovalocytes PT INR APTT Carbonic Acid 1.36 H HCO3/H2CO3 Ratio 21:1 ABG pH 7.43 ABG pCO2 45.1 H ABG pO2 79.7 L ABG HCO3 29.2 H ABG Total CO2 30.6 H ABG O2 Saturation 96.0 ABG Base Excess 4.3 FiO2 30% Sodium Potassium Chloride Carbon Dioxide Anion Gap BUN Creatinine Est GFR ( Amer) Est GFR (MDRD) Non-Af Glucose POC Glucose 116 H Lactic Acid Calcium Phosphorus Magnesium Total Bilirubin Direct Bilirubin Neonat Total Bilirubin Neonat Direct Bilirubin Neonat Indirect Bili AST ALT Alkaline Phosphatase Troponin I 0.115 C-Reactive Protein NT-Pro-B Natriuret Pep 5080 H Total Protein Albumin TSH Free T4 Free T3 pg/mL Urine Color Urine Appearance Urine pH Ur Specific [place] Urine Protein Urine Glucose (UA) Urine Ketones Urine Blood Urine Nitrite Urine Nitrite (Reflex) Urine Bilirubin Urine Urobilinogen Ur Leukocyte Esterase Leukocyte Esterase Rfl Urine WBC (Auto) Urine RBC (Auto) U Hyaline Cast (Auto) Urine WBC (Reflex) Squamous Epi Cells Auto Urine Mucus (Auto) Urine Creatinine Urine Sodium Urine Ascorbic Acid Urine Opiates Screen Urine Methadone Screen Ur Barbiturates Screen Ur Phencyclidine Scrn Ur Amphetamines Screen U Benzodiazepines Scrn Urine Cocaine Screen U Marijuana (THC) Screen Influenza A (Rapid) Influenza B (Rapid) 05/19/19 05/19/19 05/19/19 14:01 14:01 14:30 WBC 5.2 RBC 4.09 Hgb 11.2 L Hct 33.7 L MCV 82 MCH 27.5 MCHC 33.4 RDW 14.0 Plt Count 224 Lymph % (Auto) 8.2 L White % (Auto) 4.9 Eos % (Auto) 0.0 Baso % (Auto) 0.0 Absolute Neuts (auto) 4.5 Absolute Lymphs (auto) 0.4 L Absolute Monos (auto) 0.3 Absolute Eos (auto) 0.0 Absolute Basos (auto) 0.0 Total Counted Seg Neutrophils % 86.9 H Seg Neuts % (Manual) Lymphocytes % (Manual) Atypical Lymphs % Monocytes % (Manual) Eosinophils % (Manual) Basophils % (Manual) Abs Neuts (Manual) Abs Lymphs (Manual) Abs Monocytes (Manual) Absolute Eos (Manual) Abs Basophils (Manual) Toxic Granulation Platelet Comment Poikilocytosis Anisocytosis Tear Drop Cells Ovalocytes PT 13.4 INR 1.02 APTT 32.3 Carbonic Acid 1.27 HCO3/H2CO3 Ratio 21:1 ABG pH 7.44 ABG pCO2 42.3 ABG pO2 94.1 ABG HCO3 27.8 H ABG Total CO2 29.1 H ABG O2 Saturation 97.4 ABG Base Excess 3.2 FiO2 30% Sodium Potassium Chloride Carbon Dioxide Anion Gap BUN Creatinine Est GFR ( Amer) Est GFR (MDRD) Non-Af Glucose POC Glucose Lactic Acid Calcium Phosphorus Magnesium Total Bilirubin Direct Bilirubin Neonat Total Bilirubin Neonat Direct Bilirubin Neonat Indirect Bili AST ALT Alkaline Phosphatase Troponin I C-Reactive Protein NT-Pro-B Natriuret Pep Total Protein Albumin TSH Free T4 Free T3 pg/mL Urine Color Urine Appearance Urine pH Ur Specific [place] Urine Protein Urine Glucose (UA) Urine Ketones Urine Blood Urine Nitrite Urine Nitrite (Reflex) Urine Bilirubin Urine Urobilinogen Ur Leukocyte Esterase Leukocyte Esterase Rfl Urine WBC (Auto) Urine RBC (Auto) U Hyaline Cast (Auto) Urine WBC (Reflex) Squamous Epi Cells Auto Urine Mucus (Auto) Urine Creatinine Urine Sodium Urine Ascorbic Acid Urine Opiates Screen Urine Methadone Screen Ur Barbiturates Screen Ur Phencyclidine Scrn Ur Amphetamines Screen U Benzodiazepines Scrn Urine Cocaine Screen U Marijuana (THC) Screen Influenza A (Rapid) Influenza B (Rapid) 05/19/19 14:30 WBC RBC Hgb Hct MCV MCH MCHC RDW Plt Count Lymph % (Auto) White % (Auto) Eos % (Auto) Baso % (Auto) Absolute Neuts (auto) Absolute Lymphs (auto) Absolute Monos (auto) Absolute Eos (auto) Absolute Basos (auto) Total Counted Seg Neutrophils % Seg Neuts % (Manual) Lymphocytes % (Manual) Atypical Lymphs % Monocytes % (Manual) Eosinophils % (Manual) Basophils % (Manual) Abs Neuts (Manual) Abs Lymphs (Manual) Abs Monocytes (Manual) Absolute Eos (Manual) Abs Basophils (Manual) Toxic Granulation Platelet Comment Poikilocytosis Anisocytosis Tear Drop Cells Ovalocytes PT INR APTT Carbonic Acid HCO3/H2CO3 Ratio ABG pH ABG pCO2 ABG pO2 ABG HCO3 ABG Total CO2 ABG O2 Saturation ABG Base Excess FiO2 Sodium Potassium Chloride Carbon Dioxide Anion Gap BUN Creatinine Est GFR ( Amer) Est GFR (MDRD) Non-Af Glucose POC Glucose Lactic Acid Calcium Phosphorus Magnesium Total Bilirubin Direct Bilirubin Neonat Total Bilirubin Neonat Direct Bilirubin Neonat Indirect Bili AST ALT Alkaline Phosphatase Troponin I C-Reactive Protein NT-Pro-B Natriuret Pep Total Protein Albumin TSH Free T4 Free T3 pg/mL Urine Color YELLOW Urine Appearance CLEAR Urine pH 6.0 Ur Specific [place] 1.024 Urine Protein NEGATIVE Urine Glucose (UA) NEGATIVE Urine Ketones 20 H Urine Blood NEGATIVE Urine Nitrite NEGATIVE Urine Nitrite (Reflex) Urine Bilirubin NEGATIVE Urine Urobilinogen NEGATIVE Ur Leukocyte Esterase NEGATIVE Leukocyte Esterase Rfl Urine WBC (Auto) 1 Urine RBC (Auto) 0 U Hyaline Cast (Auto) Urine WBC (Reflex) Squamous Epi Cells Auto Urine Mucus (Auto) OCC Urine Creatinine Urine Sodium Urine Ascorbic Acid NEGATIVE Urine Opiates Screen Urine Methadone Screen Ur Barbiturates Screen Ur Phencyclidine Scrn Ur Amphetamines Screen U Benzodiazepines Scrn Urine Cocaine Screen U Marijuana (THC) Screen Influenza A (Rapid) Influenza B (Rapid) Chest X-Ray 05/17/19 00:00 IMPRESSION: ET tube 3.5 cm from [place]. Chest CT 05/18/19 00:00 IMPRESSION: Minimal parenchymal opacity superior segment of the right lower lobe. Scoliosis. Chest X-Ray 05/18/19 06:00 IMPRESSION: COPD. No acute infiltrates. SUPPORT DEVICE(S) IN EXPECTED LOCATIONS. Chest X-Ray 05/19/19 06:00 IMPRESSION: NO ACUTE RADIOGRAPHIC FINDING IN THE CHEST. SUPPORT DEVICE(S) IN EXPECTED LOCATIONS. EKG of 05/17/2019. SINUS TACHYCARDIA [VPC] . VENTRICULAR PREMATURE COMPLEX [PLAA] . PROBABLE LEFT ATRIAL ABNORMALITY [AMI8] . CONSIDER ANTEROSEPTAL INFARCT [T1LA] . NO EKG of 05/17/2019. NSPECIFIC T ABNORMALITIES, LATERAL LEADS EKG of 05/18/2019: . SINUS TACHYCARDIA [MFVPC] . MULTIPLE ATRIAL PREMATURE COMPLEXES [PLAA] . PROBABLE LEFT ATRIAL ABNORMALITY [AMI61] . ANTERIOR INFARCT, AGE INDETERMINATE [T0IN] . BORDERLINE T ABNORMALITIES, INFERIOR LEADS [LQTB] . BORDERLINE PROLONGED QT INTERVAL EKG of 05/19/2019: SINUS RHYTHM [T6WI] . ABNORMAL T, PROBABLE ISCHEMIA, WIDESPREAD [LQT] . PROLONGED QT INTERVAL Echocardiogram: Shows normal ventricular chamber size and wall thickness. There is moderate global hypokinesis with ejection fraction of 35%. There is moderate pulmonary hypertension with right ventricle systolic pressure of at least 48 mmHg. [Please see report] IMPRESSION/RECOMMENDATION: 1. Non-ST elevation IA: This seems to be the logical diagnosis, in spite of the patient's lack of angina, with the subendocardial T wave ischemic EKG changes and the elevated troponin which is trending down strongly recommend cardiac catheterization to assess presence or absence of coronary artery disease, and if CAD is present the significance and severity of the lesions. Would recommend start the patient on IV heparin at full dose for non-STEMI. Note the other differential diagnosis of the T wave inversion post tachycardia T wave inversion, the patient has not had any arrhythmias of significance. Also cerebral T wave inversions can be safely excluded, due to the patient being awake alert oriented x3 and with no CAN CUTTER focal deficits. Also T wave secondary to pulmonary embolism can also be excluded since the patient admitted with respiratory failure would have had much more serious decompensation if indeed this was a pulmonary embolism. Takotsubo cardiomyopathy cannot be excluded since the echo does not support the presence of Takotsubo cardiomyopathy. To sum it up strongly recommend cardiac catheterization. This has been discussed with the cigarette inspector, and also with the patient and patient's and daughter. They are agreeable. 2. Acute respiratory failure: Most likely due to combination of acute exacerbation of COPD and pneumonia. Continue ventilator support and oxygen and bronchodilators. 3. Most likely right upper lobe pneumonia: Continue antibiotics. 4. Acute exacerbation of COPD: Continue current treatment 5. Cardiomyopathy: Would recommend starting the patient on LINDSAY inhibitor and beta-da. If no revascularization is done then the patient recommended to have a repeat echocardiogram in 3 months to see if the LV ejection fraction is 35% or below in which case the patient would merit referral for AICD. If the patient does have revascularization done then echo needs to be repeated in 40 days to see if the EF is still 35% or below. If so again AICD referral needs to be made I have discussed the benefits and risks and complications of cardiac catheterization with the patient including IA arrhythmias need for CPR dangerous allergy and contrast nitro nephropathy. In view of the patient needing a cardiac catheterization would keep the patient intubated until after cardiac catheterization. Alternative therapeutic options of cardiac catheteriz ation have also been discussed with the patient. Medications reviewed. Management plan and medical regimen discussed with the cigarette inspector. The case has been discussed with the [facility] cardiologyLesly [laborer tin can] and he has been accepted for transfer under the care of the cigarette inspector. Dr. Deleon will talk to the cigarette inspector and arrange for transfer. Medical decision making is of high complexity. 60 minutes spent as patient more than 50% of time spent in direct patient care. 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 If they so desired they can follow-up with me. We will give him my phone numbers. \\ Thank you for allowing me to participate in this case
[2019-05-19] MEDS ORDERED: HEPARIN SOD (PORCINE) 1,000 UNIT/ML 10 ML VIAL IV PRN (16:47)
--- NOTE | 2019-05-19 17:12 | EKG REPORT ---
SEVERITY:- ABNORMAL ECG - SINUS RHYTHM ABNORMAL T, PROBABLE ISCHEMIA, WIDESPREAD PROLONGED QT INTERVAL : Confirmed by: Maggie Wallace 19-May-2019 17:11:16
[2019-05-19 17:18] VITALS: BP 106/72
[2019-05-19] MEDS ORDERED: MIRTAZAPINE 15 MG TABLET PO SCH (22:00)
== END 2019-05-19 15:10 | disposition short-term general hospital (02) | DRG 280 ==
LOC: ER 21:24 → EH 22:10 → UNDOADMIN 22:10 → EH 23:51 → ICU 05-18 00:24
PROVIDERS: ADMIT Internal Medicine Critical Care Medicine; ATTEND Internal Medicine Critical Care Medicine
PROC: 5A1945Z Respiratory Ventilation, 24-96 Consecutive Hours (ICD-10-PCS; principal; 2019-05-17)
DX: I21.4 Non-ST elevation (NSTEMI) myocardial infarction (principal); J96.02 Acute respiratory failure with hypercapnia; J96.01 Acute respiratory failure with hypoxia; J44.1 Chronic obstructive pulmonary disease with (acute) exacerbation; I42.9 Cardiomyopathy, unspecified; I95.9 Hypotension, unspecified; E86.1 Hypovolemia; F41.8 Other specified anxiety disorders; F31.9 Bipolar disorder, unspecified; F17.210 Nicotine dependence, cigarettes, uncomplicated; K44.9 Diaphragmatic hernia without obstruction or gangrene; F12.10 Cannabis abuse, uncomplicated; R73.9 Hyperglycemia, unspecified; Z96.641 Presence of right artificial hip joint; I25.2 Old myocardial infarction; Z88.0 Allergy status to penicillin; Z88.7 Allergy status to serum and vaccine; Z88.8 Allergy status to other drugs, medicaments and biological substances; Z93.3 Colostomy status
CPT/HCPCS: 36415; 51702; 71045; 71260; 80048; 80053; 80183; 80307; 81001; 81332; 82570; 82803; 82962; 83605; 83735; 83880; 84100; 84300; 84439; 84443; 84481; 84484; 85025; 85610; 85730; 86140; 87040; 87070; 87077; 87086; 87088; 87205; 87252; 87804; 93005; 93010; 93306; 94002; 94003; 96374; 99285; 99291; 99292; J0692; J0696; J1170; J1644; J1650; J2704; J2920; J3360; J3475; J3490; J7060; J7120; J7620; S0028

== ENCOUNTER → 2020-01-29 | Outpatient (CLI) | payer MEDICAID ==
--- NOTE | 2020-01-29 16:12 | RADIOLOGY REPORT (SQ) ---
EXAM DESCRIPTION: CT LUNG CANCER SCREENING IMAGES COMPLETED DATE/TIME: 01/29/2020 10:44 am REASON FOR STUDY: Z87.891 PERSONAL HISTORY OF NICOTINE DEPENDENCE Z87.891 PERSONAL HISTORY OF NICOT INE DEPENDENCE Has the patient had a Chest CT scan within the past year? N Was the patient offered tobacco cessation counseling? Y Was the patient engaged in shared decision making for this test? Y Does the patient have signs or symptoms of Lung Cancer? N Is the patient a smoker? Y How many pack years? 40Y How many years since quitting smoking? 0 Patients age: 59Y COMPARISON: 05/18/2019 and 04/25/2013 TECHNIQUE: Low Dose CT scan performed of the chest without intravenous contrast for purposes of scre ening for lung cancer. Images reviewed with lung, soft tissue and bone windows. Reconstructed coron al and sagittal MPR images reviewed. All images stored on PACS. All CT scanners at this facility use dose modulation, iterative reconstruction, and/or weight based d osing when appropriate to reduce radiation dose to as low as reasonably achievable (ALARA). [facility]: Dose Right [facility]: CareDose [facility]: Dose Right [facility]: Teradose 4D [facility]: CartMomo RADIATION DOSE: CT Rad equipment meets quality standard of care and radiation dose reduction techniq ues were employed. CTDIvol: 2.1 mGy. DLP: 85 mGy-cm. mGy. . LIMITATIONS: None FINDINGS: LUNGS AND PLEURA: No masses or nodules. No pleural effusions or calcifications. No pne umothorax. Left lower lobe atelectasis with volume loss. The airways are normal or modality/techni que. HILAR AND MEDIASTINAL STRUCTURES: No identified masses. No abnormal nodes. HEART AND VASCULAR STRUCTURES: No aortic aneurysm. No pericardial effusion. No cardiac devices. CORONARY ARTERY CALCIFICATIONS: No significant calcifications. UPPER ABDOMEN, THYROID, BONES, OTHER SOFT TISSUES: Hiatal hernia. Multiple healing bilateral rib fra ctures. IMPRESSION: No suspicious nodules or masses. Interval development of left lower lobe atelectasis with volume loss. This is a nonspecific finding, and may be related to diminished inspiratory effort in the setting of multiple subacute/healing bila teral rib fractures. LUNGRADS: LUNGRADS: 1 NEGATIVE. NO NODULES, OR DEFINITELY BENIGN NODULES MODIFIER: S CLINICALLY SIGNIFICANT OR POTENTIALLY CLINICALLY SIGNIFICANT FINDINGS (non lung cancer) RECOMMENDATION: Continue annual screening with LDCT in 12 months. COMMENT: CRITERIA: No lung nodules. Nodules with specific calcifications: Complete, central, popcorn, concentric rings and fat containin g nodules. TECHNICAL DOCUMENTATION: JOB ID: [id number] Quality ID # [id number]: Final reports with documentation of one or more dose reduction techniques (e.g., Au tomated exposure control, adjustment of the mA and/or kV according to patient size, use of iterative reconstruction technique) 2010 [facility] Radiology Reading location - IP/workstation name: [email or web address]
== END ==
LOC: RAD 10:33
PROVIDERS: ATTEND Internal Medicine Pulmonary Disease
DX: Z12.2 Encounter for screening for malignant neoplasm of respiratory organs (principal); Z87.891 Personal history of nicotine dependence; K44.9 Diaphragmatic hernia without obstruction or gangrene
CPT/HCPCS: G0297